=== PATIENT | male | born 1965 | race Caucasian/White ===

== ENCOUNTER 2017-03-16 14:38 | Observation (INO) ==
--- NOTE | 2017-03-16 14:50 | Emergency Department Note ---
Disposition Clinical Impression: Hyponatremia, Pancreatic mass Deep vein thrombosis of lower extremity Qualifiers: Affected thrombotic vein of extremity: popliteal Chronicity: acute Laterality: left Qualified Code(s): I82.432 - Acute embolism and thrombosis of left popliteal vein Disposition: Admitted As Inpatient Condition: Serious Time of Disposition: 18:20 Extremity Problem HPI - General Chief complaint: ED Extremity Problem,Nontraumatic Stated complaint: DVT Time Seen by Provider: 03/16/17 14:45 Source: patient Mode of arrival: ambulatory Limitations: no limitations Nursing Notes Reviewed: Yes Vital Signs Reviewed: Yes - History of Present Illness HPI Narrative: 51-year-old male history of pancreatic mass diagnosed 2 weeks ago with no subsequent follow-up presents with left lower extremity swelling, patient also has a history of DVTs his previously anticoagulated on Coumadin but has been discontinued and only takes aspirin at this time. Patient states that 2 or 3 days ago his left lower extremity started to swell on him. He reports 8 out of 10 pain in his left leg, describes this as pain from his lower calf up to his thigh. States that he has worse swelling and difficulty walking. Patient endorses 10 pounds or so of weight loss the last few months. Is also had anorexia and decreased ability to tolerate solids secondary to what he describes as an anaphylactic reaction to contrast dye when he had his CT imaging a few weeks ago. Pt Subjective Complaint: extremity swelling Onset (ago): day(s) (3) Injury Location: left Pain Scale: 8 Quality: aching Radiation: proximal, distal Improves with: immobilization Worsens with: range of motion, weight bearing Associated symptoms: Reports: denies other symptoms, shortness of breath, abdominal pain. Denies: chest pain, back pain, bowel/bladder symptoms Context: history of DVT - Related Data Home Medications Medication Instructions Recorded Confirmed Aspirin Enteric Coated [Aspirin EC] 81 mg PO DAILY 03/16/17 03/16/17 Lansoprazole [Prevacid] 30 mg PO DAILY 03/16/17 03/16/17 Ranitidine HCl [Heartburn Relief] 150 mg PO HS 03/16/17 03/16/17 Allergies Allergy/AdvReac Type Severity Reaction Status Date / Time Iodinated Contrast- Oral and Allergy Swelling Verified 03/16/17 14:42 IV Dye of Lip/Tongue/Throat morphine Allergy Nausea Verified 03/16/17 14:42 All systems ED: reviewed and negative except as stated. Review of Systems: As Per HPI Constitutional: Reports: as per HPI, weakness, weight change. Denies: fever, chills Eyes: Denies: eye pain ENT ED: Denies: ear pain Cardiovascular: Reports: as per HPI, dyspnea on exertion, edema (left leg). Denies: chest pain, palpitations Respiratory: Denies: cough, dyspnea Gastrointestinal: Reports: as per HPI, abdominal pain, nausea Genitourinary: Denies: urgency, dysuria Musculoskeletal: Reports: joint swelling. Denies: back pain Integumentary: Denies: rash Neurological: Reports: weakness. Denies: headache Psychiatric: Denies: anxiety Endocrine: Denies: fatigue Past Medical History - Past Medical History Attestation: Yes The following information was validated with the patient. Source: patient Physical Exam Constitutional: NAD, cachectic male appears older than stated age vital signs within normal limits Eyes: PERRLA, sclera anicteric ENT & Mouth: MM try Neck: normal inspection, neck is supple Resp: CTA bilaterally, no resp distress CV: RRR, no m/g/r +3 pitting edema left lower extremity ankle posterior calf or thigh GI: normal inspection, soft, no palpable mass, midline incision, mild tenderness no rebound or guarding Neuro: A&O3, CNII-XII grossly intact, PETTY Skin: on limited exam, skin intact with no rashes or lesions, left lower extremity is edematous and mildly erythematous from the ankle and proximately through the thigh poor skin turgor Course Course Narrative: 51-year-old male with concern for pancreatic mass recently diagnosed and history of DVTs has a new left lower extremity swelling plan for bedside ultrasound followed by formal ultrasound basic lab works for CBC BMP patient has some shortness of breath weakness and abdominal pain. As he clinically appears to have a DVT plan will be to get the ventilation perfusion imaging, as he has an iodine contrast dye allergy - Reevaluation(s) Reevaluation #1: Patient does not technically meet SIRS criteria but his heart rate is close at 98, his white count is 14, this may be related to the DVT bedside ultrasound shows a noncompressible veins diffusely in his deep system on the left leg performed by Dr. Ange Garner supervising, given his clinical exam and bedside findings, decision was made for heparinization, this is ordered in addition to lactate and blood cultures developed given white count plan will be for admission and medical management of his multiple comorbidities also on his electrolytes he is hyponatremic given a liter fluid Time: 16:25 Reevaluation #2: Ultrasound confirms DVT positive, patient with hyponatremia left lower summary DVT and pancreatic mass admitted to the hospitalist Christ ORTEGA accepting Time: 18:22 Vital Signs Temperature 98.4 F 03/16/17 14:44 Pulse Rate 92 03/16/17 14:44 Respiratory Rate 16 03/16/17 14:44 Blood Pressure 122/74 03/16/17 14:44 O2 Sat by Pulse Oximetry 99 03/16/17 14:44 Temperature 98.4 F 03/16/17 14:44 Pulse Rate 102 03/16/17 18:12 Respiratory Rate 16 03/16/17 18:12 Blood Pressure 112/79 03/16/17 18:12 O2 Sat by Pulse Oximetry 100 03/16/17 18:12 Oxygen Delivery Oxygen Delivery Room Air Extremity Problem, Nontraumati - Differential Diagnosis Likely: deep venous thrombosis - Medical Records Medical records reviewed: Yes I reviewed the patient's medical records. - Lab Data Lab results reviewed: Yes I reviewed the patient's lab results. Result diagrams: 03/16/17 14:54 03/16/17 14:54 Lab Results 03/16/17 03/16/17 03/16/17 Range/Units 14:54 14:54 14:54 WBC 14.4 H (4.3-11.1) K/mcL RBC 3.80 L (4.19-5.50) M/mcL Hgb 12.8 L (12.9-16.9) g/dL Hct 36.7 L (37.5-50.1) % MCV 96.6 (83.0-100.0) fL MCH 33.7 H (28.0-33.3) pg MCHC 34.9 (31.6-35.5) g/dL RDW 13.1 (11.5-14.5) % Plt Count 132 L (140-400) K/mcL MPV 10.1 (9.4-12.4) fL Immature Gran % 0.7 (0-4) % Seg Neutrophils % 73.6 % Lymphocytes % 11.9 % Monocytes % 12.9 % Eosinophils % 0.6 % Basophils % 0.3 % Neutrophils # 10.6 H (1.6-8.9) K/mcL Lymphocytes # 1.7 (0.6-4.6) K/mcL Monocytes # 1.9 H (0.0-1.3) K/mcL Eosinophils # 0.1 (0.0-0.6) K/mcL Basophils # 0.1 (0.0-0.2) K/mcL PT (9.4-12.1) Seconds INR APTT (26.0-36.0) Seconds Sodium 126 L (136-145) mEq/L Potassium 4.2 (3.5-4.5) mEq/L Chloride 91 L (98-109) mEq/L Carbon Dioxide 26 (19-29) mEq/L BUN 4 L (8-26) mg/dL Creatinine 0.57 L (0.72-1.25) mg/dL Est GFR ( Amer) > 60 (> 60) Est GFR (Non-Af Amer) > 60 (> 60) BUN/Creatinine Ratio 7 (6-26) Glucose 101 H (70-99) mg/dL Calculated Osmolality 259 L (280-300) Lactic Acid (0.5-2.2) mmol/L Calcium 9.4 (8.6-10.8) mg/dL Total Bilirubin 1.4 H (0.2-1.2) mg/dL AST 98 H (5-34) Units/L ALT 36 (0-55) Units/L Alkaline Phosphatase 782 H (38-126) Units/L Troponin I 0.02 (0-0.03) ng/mL Serum Total Protein 6.5 (6.0-8.3) g/dL Albumin 2.8 L (3.5-5.0) g/dL Globulin 3.7 H (2.4-3.5) g/dL Albumin/Globulin Ratio 0.8 L (1.1-2.2) Lipase 43 (8-78) Units/L Urine Color (Yellow) Urine Clarity (Clear) Urine pH (5.0-8.0) pH Units Ur Specific [place] (1.010-1.025) Urine Protein (Neg-Trace) mg/dL Urine Glucose (UA) (Normal) mg/dL Urine Ketones (Negative) mg/dL Urine Blood (Negative) Urine Nitrite (Negative) Urine Bilirubin (Negative) Urine Urobilinogen (Normal) mg/dL Ur Leukocyte Esterase (Negative) Urine Microscopic RBC (0-3) per hpf Urine Microscopic WBC (0-3) per hpf Ur Squamous Epith Cells (None-Few) per lpf Urine Bacteria (None-Few) per hpf Hyaline Casts (None-Few) per lpf Ur Culture Indicated? (NO) 03/16/17 03/16/17 03/16/17 Range/Units 14:54 16:05 17:20 WBC (4.3-11.1) K/mcL RBC (4.19-5.50) M/mcL Hgb (12.9-16.9) g/dL Hct (37.5-50.1) % MCV (83.0-100.0) fL MCH (28.0-33.3) pg MCHC (31.6-35.5) g/dL RDW (11.5-14.5) % Plt Count (140-400) K/mcL MPV (9.4-12.4) fL Immature Gran % (0-4) % Seg Neutrophils % % Lymphocytes % % Monocytes % % Eosinophils % % Basophils % % Neutrophils # (1.6-8.9) K/mcL Lymphocytes # (0.6-4.6) K/mcL Monocytes # (0.0-1.3) K/mcL Eosinophils # (0.0-0.6) K/mcL Basophils # (0.0-0.2) K/mcL PT 11.6 (9.4-12.1) Seconds INR 1.1 APTT 25.9 L (26.0-36.0) Seconds Sodium (136-145) mEq/L Potassium (3.5-4.5) mEq/L Chloride (98-109) mEq/L Carbon Dioxide (19-29) mEq/L BUN (8-26) mg/dL Creatinine (0.72-1.25) mg/dL Est GFR ( Amer) (> 60) Est GFR (Non-Af Amer) (> 60) BUN/Creatinine Ratio (6-26) Glucose (70-99) mg/dL Calculated Osmolality (280-300) Lactic Acid 1.0 (0.5-2.2) mmol/L Calcium (8.6-10.8) mg/dL Total Bilirubin (0.2-1.2) mg/dL AST (5-34) Units/L ALT (0-55) Units/L Alkaline Phosphatase (38-126) Units/L Troponin I (0-0.03) ng/mL Serum Total Protein (6.0-8.3) g/dL Albumin (3.5-5.0) g/dL Globulin (2.4-3.5) g/dL Albumin/Globulin Ratio (1.1-2.2) Lipase (8-78) Units/L Urine Color Dark Yellow (Yellow) Urine Clarity Cloudy A (Clear) Urine pH 6.0 (5.0-8.0) pH Units Ur Specific Radisson 1.020 (1.010-1.025) Urine Protein Negative (Neg-Trace) mg/dL Urine Glucose (UA) Normal (Normal) mg/dL Urine Ketones Trace H (Negative) mg/dL Urine Blood Negative (Negative) Urine Nitrite Negative (Negative) Urine Bilirubin Small H (Negative) Urine Urobilinogen Normal (Normal) mg/dL Ur Leukocyte Esterase Small H (Negative) Urine Microscopic RBC 0-3 (0-3) per hpf Urine Microscopic WBC 5-15 H (0-3) per hpf Ur Squamous Epith Cells Many H (None-Few) per lpf Urine Bacteria None Seen (None-Few) per hpf Hyaline Casts None Seen (None-Few) per lpf Ur Culture Indicated? YES A (NO) - Radiology Data Radiology results reviewed: Yes I reviewed the patient's radiology results. Pulmonary Perfusion Imaging 03/16/17 15:24 IMPRESSION: Low probability for pulmonary embolus. COPD. D/ / Waldemar Castillo MD / Waldemar Castillo MD Interpreting Provider: Waldemar Castillo MD Chest X-Ray 03/16/17 15:35 IMPRESSION: Stable chest, demonstrating emphysema and pleuroparenchymal scarring at the right base. No superimposed acute process identified. D/ / 03/16/2017 16:04:15 Nicanor Hernandez MD / geovani Interpreting Provider: Nicanor Hernandez MD - EKG Data EKG attestation: Yes I reviewed and interpreted this EKG. EKG shows normal: sinus rhythm Rate: normal (90 bpm [place] 119 QRS at [address] segment elevations or depressions, sinus arrhythmia)
[2017-03-16 15:09] LABS: Basophils # 0.1 K/mcL (0.0-0.2); Basophils % 0.3 %; Eosinophils # 0.1 K/mcL (0.0-0.6); Eosinophils % 0.6 %; Hematocrit 36.7 % (37.5-50.1); Hemoglobin 12.8 g/dL (12.9-16.9); Immature Granulocytes % 0.7 % (0-4); Lymphocytes # 1.7 K/mcL (0.6-4.6); Lymphocytes % 11.9 %; Mean Corpuscular HGB Conc 34.9 g/dL (31.6-35.5); Mean Corpuscular Hemoglobin 33.7 pg (28.0-33.3); Mean Corpuscular Volume 96.6 fL (83.0-100.0); Mean Platelet Volume 10.1 fL (9.4-12.4); Monocytes # 1.9 K/mcL (0.0-1.3); Monocytes % 12.9 %; Neutrophils # 10.6 K/mcL (1.6-8.9); Platelet Count 132 K/mcL (140-400); Red Cell Distribution Width 13.1 % (11.5-14.5); Segmented Neutrophils % 73.6 %
[2017-03-16] MEDS ORDERED: Ondansetron 4 MG/2 ML VIAL IVP ONE ×2 (15:15→18:22)
[2017-03-16] MEDS ORDERED: *HR* HYDROmorphone (PF) 1 MG/ML SYRINGE IVP ONE ×2 (15:15→17:40)
[2017-03-16] MEDS ORDERED: 0.9 % Sodium Chloride 1,000 ML IVC ONE ×2 (15:15→17:44)
[2017-03-16 15:22] LABS: Alanine Aminotransferase 36 Units/L (0-55); Albumin 2.8 g/dL (3.5-5.0); Albumin/Globulin Ratio 0.8 (1.1-2.2); Alkaline Phosphatase 782 Units/L (38-126); Aspartate Amino Transferase 98 Units/L (5-34); BUN/Creatinine Ratio 7 (6-26); Bilirubin,Total 1.4 mg/dL (0.2-1.2); Calcium 9.4 mg/dL (8.6-10.8); Carbon Dioxide 26 mEq/L (19-29); Chloride 91 mEq/L (98-109); Globulin 3.7 g/dL (2.4-3.5); Glucose 101 mg/dL (70-99); Lipase 43 Units/L (8-78); Osmolality,Calculated 259 (280-300); Potassium 4.2 mEq/L (3.5-4.5); Sodium 126 mEq/L (136-145); Total Protein 6.5 g/dL (6.0-8.3); eGFR For African Americans > 60 (> 60); eGFR For Non-African Americans > 60 (> 60)
[2017-03-16 15:23] LABS: Blood Urea Nitrogen 4 mg/dL (8-26)
[2017-03-16] MEDS ORDERED: *HR* Heparin 5,000 UNIT/ML VIAL IVP ONE (16:01)
[2017-03-16] MEDS ORDERED: *HR* Heparin 5,000 UNIT/ML VIAL IVP PRN ×2 (16:01)
--- NOTE | 2017-03-16 16:09 | Emergency Department Note ---
START Narrative - START START: I examined this patient and my medical decision-making was reviewed with the Resident Physician. I agree with the documented findings, disposition and treatment plan as described except to the extent set forth below. 51 year old male with pancreatic mass and likely cancer who presents to the ED with compalints of LLE swelling that started abotu one week ago and is also experineincg shortness of breath. Likely a DVT, will rule out PE, bedisde US by izzy confirms DVT in LLE. We will start heparin therapy now waitiing for fomrla ultrasound reports and aDMIT ot quentin
[2017-03-16] MEDS ORDERED: Heparin 25,000 UNIT/500 ML D5W 25,000 UNIT/500 ML MLS IVC SCH (16:15)
[2017-03-16 16:22] LABS: INR 1.1; Prothrombin Time 11.6 Seconds (9.4-12.1)
[2017-03-16 16:24] LABS: Activated Partial Thrombo Time 25.9 Seconds (26.0-36.0)
[2017-03-16 17:33] LABS: Bilirubin,Urine Small (Negative); Blood,Urine Negative (Negative); Clarity,Urine Cloudy (Clear); Color,Urine Dark Yellow (Yellow); Glucose,Urine (UA) Normal (Normal); Ketones,Urine Trace mg/dL (Negative); Leukocyte Esterase,Urine Small (Negative); Nitrite,Urine Negative (Negative); Protein,Urine Negative (Neg-Trace); Urobilinogen,Urine Normal (Normal)
[2017-03-16 17:37] LABS: Bacteria,Urine None Seen per hpf (None-Few); Hyaline Casts,Urine None Seen per lpf (None-Few); RBC,Urine 0-3 per hpf (0-3); Squamous Epithelial Cell,Urine Many per lpf (None-Few)
[2017-03-16] MEDS ORDERED: Ondansetron 4 MG/2 ML VIAL ONE (18:25)
[2017-03-16] MEDS ORDERED: 0.9 % Sodium Chloride 1,000 ML ONE (20:07)
[2017-03-16] MEDS ORDERED: 0.9 % Sodium Chloride 1,000 ML IVC SCH (20:15)
[2017-03-16] MEDS ORDERED: Naloxone 0.4 MG/ML INJ IVP PRN (20:17)
[2017-03-16] MEDS ORDERED: Acetaminophen 325 MG TABLET PO PRN (20:17)
--- NOTE | 2017-03-16 20:24 | Internal Med History&Physical ---
Date of Encounter: 03/16/17 Time of Encounter: 20:21 Assessment and Plan (1) Deep vein thrombosis of lower extremity Current visit: Yes Status: Acute start lovenox 1mg/kg BID tonight. To have case management check insurance/cost. provoked by [facility] Qualifiers: Affected thrombotic vein of extremity: popliteal Chronicity: acute Laterality: left Qualified Code(s): I82.432 - Acute embolism and thrombosis of left popliteal vein (2) Pancreatic adenocarcinoma Current visit: Yes Status: Acute consult onc (3) Hyponatremia Current visit: Yes Status: Acute IVF. Trend for now. (4) Tobacco abuse Current visit: Yes Status: Acute nicotine patch Internal Medicine - H&P: HPI Chief complaint: LLE swelling History of present illness: Mr. Cohen is a 51 year old male with a PMH of DVT in either legs x 2 (last was 7 years ago) and had been on coumadin for approx 6 months at that time, now off who presents with 1 week hx of worsening LLE swelling. Found to have acute LLE DVT in the ED Reported 1 week hx of worsening LLE swelling associated with throbbing 6/10, radiating all over his LLE. He denies any provoked factors such as immobilization/hospitalization/air or car travel. However, on review of patient chart and past imaging, he apparently has pancreatitic cancer which easily explains cause of DVT He smokes 2 PPD EKG reviewed by self with rate 90, NSR Past Med Surg Social Fam HX - Past Medical History Medical history: cancer, COPD, DVT Psychiatric history: anxiety, depression - Social History Smoking Status: Current every day smoker Packs per day: 2 Smokeless Tobacco Status: No Alcohol use: occasionally Drug use: none - Family History Father Living Status: Hx Family Cancer: Yes (skin) Mother Living Status: Hx Family Cancer: Yes (colon) Internal Medicine - H&P: Meds Aspirin Enteric Coated [Aspirin EC] 81 mg PO DAILY 03/16/17 [History] Lansoprazole [Prevacid] 30 mg PO DAILY 03/16/17 [History] Ranitidine HCl [Heartburn Relief] 150 mg PO HS 03/16/17 [History] 3 Allergy/AdvReac Type Severity Reaction Status Date / Time Iodinated Contrast- Oral and Allergy Swelling Verified 03/16/17 14:42 IV Dye of Lip/Tongue/Throat morphine Allergy Nausea Verified 03/16/17 14:42 All Systems PM: A 10-system review of systems was performed and is negative for pertinent findings except as documented above in the HPI. Review of systems: ROS 14 point review of systems reviewed as best as possible given presentation. Pertinent positive or negative as per HPI or otherwise reviewed as negative - Constitutional Vitals: Temp Pulse Resp BP Pulse Ox 97.4 F L 93 17 127/81 92 03/16/17 19:13 03/16/17 19:13 03/16/17 19:13 03/16/17 19:13 03/16/17 20:02 Exam: General - AAO x 3 Psych - Appropriate affect/speech. No agitation Eyes - RAGHAV. Eye lids intact. No scleral icterus Heart - Sinus. RRR. S1 and S2 present. No added HS/murmurs appreciated. No elevated JVD appreciated. Lung - Adequate air entry b/l, No crackles/wheezes appreciated GI - Soft, non-tender. No hepatosplenomegaly/ascites. BS+ - No CVA/suprapubic tenderness or palpable bladder distension Extremities - LLE swelling MSK - Joints with normal ROM. No joint swellings Internal Med - H&P Results - Labs CBC & Chem 7: 03/16/17 14:54 03/16/17 14:54
--- NOTE | 2017-03-16 20:32 | Electrocardiograph Report ---
[place] [id number] Test Date: 2017-03-16 Pat Name: [place] Cohen Department: 103 Room: 3B Gender: M [employer]: AM : 1965 Requested By: Gomez Osullivan Order Number: [id number] Reading MD: Melissa Valdez Measurements Intervals [place] Rate: 90 P: 77 OR: 119 QRS: 39 QRSD: 81 T: 58 QT: 360 QTc: 408 Interpretive Statements SINUS RHYTHM WITH SINUS ARRHYTHMIA WITH SHORT OR INTERVAL POSSIBLE RIGHT VENTRICULAR CONDUCTION DELAY [RSR (QR) IN V1/V2] Electronically Signed On 03-16-2017 20:30:08 EDT by Melissa Valdez
[2017-03-16] MEDS ORDERED: Famotidine 20 MG TABLET PO SCH (21:00)
[2017-03-16] MEDS ORDERED: *HR* Rivaroxaban 15 MG TABLET PO SCH (21:00)
[2017-03-16] MEDS: Nicotine 21 MG PATCH.TD24 TD SCH (21:15)
[2017-03-16] MEDS: *HR* Enoxaparin 60 MG/0.6 ML SYRINGE SQ SCH (21:15)
[2017-03-16] MEDS: 0.9 % Sodium Chloride 1,000 ML IVC SCH (21:51)
[2017-03-17 05:23] LABS: INR 1.1; Prothrombin Time 11.7 Seconds (9.4-12.1)
[2017-03-17 05:26] LABS: Activated Partial Thrombo Time 33.4 Seconds (26.0-36.0)
[2017-03-17] MEDS ORDERED: *HR* HYDROmorphone (PF) 1 MG/ML SYRINGE IVP ONE (05:28)
[2017-03-17 05:35] LABS: BUN/Creatinine Ratio 7 (6-26); Calcium 8.4 mg/dL (8.6-10.8); Carbon Dioxide 26 mEq/L (19-29); Chloride 101 mEq/L (98-109); Glucose 75 mg/dL (70-99); Osmolality,Calculated 276 (280-300); Potassium 4.1 mEq/L (3.5-4.5); eGFR For African Americans > 60 (> 60); eGFR For Non-African Americans > 60 (> 60)
[2017-03-17 05:38] LABS: Blood Urea Nitrogen 4 mg/dL (8-26); Sodium 135 mEq/L (136-145)
[2017-03-17] MEDS: *HR* Enoxaparin 60 MG/0.6 ML SYRINGE SQ SCH ×2 (05:59→17:18)
[2017-03-17] MEDS ORDERED: *HR* OxyCODONE Immed Rel 5 MG TABLET PO ONE (09:05)
[2017-03-17] MEDS: Aspirin Enteric Coated 81 MG Tablet PO SCH (09:45)
[2017-03-17] MEDS: Nicotine 21 MG PATCH.TD24 TD SCH (09:50)
[2017-03-17] MEDS ORDERED: *HR* OxyCODONE Immed Rel 5 MG TABLET PO PRN (17:11)
[2017-03-17] MEDS: 0.9 % Sodium Chloride 1,000 ML IVC SCH (17:18)
--- NOTE | 2017-03-17 17:25 | Internal Med Progress Note ---
Date of Encounter: 03/17/17 Time of Encounter: 17:48 - Assessment and plan (1) Deep vein thrombosis of lower extremity Current Visit: Yes Status: Acute Assessment and plan: hx DVT in the past. Presented with Left lower extremity edema for one week prior to admission. Bilateral lower extremity dopplers with extensive left leg DVT. Cont Lovenox Qualifiers: Affected thrombotic vein of extremity: popliteal Chronicity: acute Laterality: left Qualified Code(s): I82.432 - Acute embolism and thrombosis of left popliteal vein (2) Pancreatic adenocarcinoma Current Visit: Yes Status: Acute Assessment and plan: outpatient ABD CT with primary pancreatic malignancy with metastatic disease to the liver and upper abdominal lymphadenopathy. Has not been evaluated by Oncology. He would likle to follow at [place]. Oncology and GI consulted. Discussed with Oncology and will likely need liver bx. (3) Left kidney mass Current Visit: Yes Status: Acute Assessment and plan: 02/25/[address] with hypodenisty to left kidney concerning for infarct or infection. Already on therapeutic Lovenox for DVT. Admission UA grossly contaminated. WBC 14K. Repeat UA (4) Compression fracture Current Visit: Yes Status: Acute Assessment and plan: 02/25/[address] with multiple compression fractures, unchanged from previous imaging. PRN OxyIR (5) Hyponatremia Current Visit: Yes Status: Acute Assessment and plan: Na 126 on arrival. Normalized with IV fluids. Intermittently monitor CMP (6) Tobacco abuse Current Visit: Yes Status: Acute Assessment and plan: Current smoker; cessation advised. - Subjective Interval history: Seen and examined at bedside; he complains of back pain which he tinks is due to compression fx. Says swelling in left leg is about the same. No CP or SOB - Constitutional Vitals: Temp Pulse Resp BP Pulse Ox 98.1 F 93 15 115/77 95 03/17/17 15:30 03/17/17 15:30 03/17/17 15:30 03/17/17 15:30 03/17/17 15:30 General appearance: Present: cachectic - Head Head exam: Present: atraumatic, normocephalic - Eye Eye exam: Present: PERRL, conjuntiva pink, sclera anicteric Pupils: Present: PERRL - Neck Neck exam general surgery: Present: supple, trachea midline. Absent: lymphadenopathy - Respiratory Respiratory exam: Present: CTAB. Absent: accessory muscle use, rales, rhonchi, wheezes - Cardiovascular Cardiovascular exam: Present: RRR, +S1, +S2. Absent: diastolic murmur, gallop, rubs, systolic murmur - GI/Abdominal GI/Abdominal exam: Present: normal bowel sounds, soft, no peritoneal signs. Absent: distended, tenderness - Extremities Exam Extremities exam: Present: warm, radial pulses palpable and symmetrical. Absent : calf tenderness, cyanotic, pedal edema - Neurological Exam Neurological exam: Present: CN II-XII intact, oriented X3, no focal deficits. Absent: pronater drift, facial droop, speech deficit - Skin Skin exam: Present: dry, intact Internal Medicine: Result - Labs CBC & Chem 7: 03/16/17 14:54 03/17/17 04:37 Labs: BMP 03/17/17 04:37 Sodium 135 L D Potassium 4.1 Chloride 101 Carbon Dioxide 26 BUN 4 L Creatinine 0.55 L Glucose 75 Calcium 8.4 L - ABG Interpretation ABG results: PT/INR, D-dimer PT 11.7 Seconds (9.4-12.1) 03/17/17 04:37 Consult Discharge Plan - Plan Referrals: Neeraj Bueno DO [Resident] -
--- NOTE | 2017-03-17 17:44 | Venous Imaging Report ---
LE Venous Duplex Patient Name:[place] Cohen Order Number:[id number] Procedure Date:03/16/2017 Date:1965Age:51 yrs Gender:Male Location:[facility] ED Room #: ER02 Ore Feeder:Georgie Deng RDCS, RVT Referring MD:Gomez Osullivan DO Reading MD:Remi Barba MD , FACS Primary Indications:Swelling of limb Secondary Indications: Risk Factors Yes/No Hx of DVT Yes Impressions: Lower extremity abnormal deep exam: left iliac through tibial vein demonstrates acute thrombosis. Lower extremity abnormal superficial exam: left great saphenous vein and lesser saphenous vein demonstrate acute thrombosis. Right lower extremity: normal contralateral exam. Recommendations: Test completed on 03/16/2017 at 4:30:00 pm. Critical findings reported to Rambo Osullivan in person at 4:34:00 pm on 03/16/2017 by Georgie Deng RDCS, RVT. Findings Venous Duplex Results: Right: Venous imaging of the lower extremity reveals full patency and normal vessel compressibility of the right common femoral. Doppler signals in the evaluated veins were normal. Left: Venous imaging of the lower extremity reveals full patency and normal vessel compressibility of the left peroneal and left posterior tibial. Doppler signals in the evaluated veins were normal. The left distal iliac demonstrates an incompressible vein. Flow was continuous and it did not augment. The left common femoral demonstrates an incompressible vein. Flow was absent and it did not augment. The left superficial femoral demonstrates an incompressible vein. Flow was continuous and it did not augment. The left popliteal demonstrates an incompressible vein. Flow was absent and it did not augment. The left gastrocnemius demonstrates an incompressible vein. Flow was absent and it did not augment. The left great saphenous demonstrates an incompressible vein. Flow was continuous and it did not augment. The left lesser saphenous demonstrates an incompressible vein. Flow was absent and it did not augment. Prior Study: No prior study available for comparison. Lower Extremity Venous Duplex Side Vein Compress Spontaneous Flow Augment Diameter (cm) Depth (cm) Left Distal Iliac None no Continuous no Left Common Femoral None no Absent no Left Superficial Femoral None no Continuous no Left Popliteal None no Absent no Left Peroneal Normal Yes Phasic Yes Left Gastrocnemius None no Absent no Left Posterior Tibial Normal Yes Phasic Yes Left Great Saphenous None no Continuous no Left Lesser Saphenous None no Absent no Right Common Femoral Normal Yes Phasic Yes Updated by Remi Barba MD, FACS on 03/17/2017 5:38:57 PM Remi Barba MD electronically signed on 03/17/2017 5:39:34 PM with status of Final
[2017-03-17 18:34] LABS: Bilirubin,Urine Small (Negative); Blood,Urine Negative (Negative); Clarity,Urine Cloudy (Clear); Color,Urine Dark Yellow (Yellow); Glucose,Urine (UA) Normal (Normal); Ketones,Urine Negative (Negative); Leukocyte Esterase,Urine Negative (Negative); Nitrite,Urine Negative (Negative); Protein,Urine Negative (Neg-Trace); Specific Gravity,Urine 1.017 (1.010-1.025); Urobilinogen,Urine Normal (Normal)
[2017-03-17 18:36] LABS: Hyaline Casts,Urine None Seen per lpf (None-Few); RBC,Urine 0-3 per hpf (0-3); Squamous Epithelial Cell,Urine Many per lpf (None-Few); WBC,Urine 0-3 per hpf (0-3)
[2017-03-17 18:47] LABS: Bacteria,Urine Few per hpf (None-Few)
--- NOTE | 2017-03-17 20:19 | Oncology Inp Consult Note ---
Date of Encounter: 03/17/17 Time of Encounter: 20:08 Assessment and Plan (1) Pancreatic mass Status: Acute Assessment and plan: I personally reviewed Mr. Cohen CT scan findings ( both CT chest and abdomen from december 18 and march 10, 2017 and inform him that the findings are highly suggestive of pancreatic cancer. I informed him that there is a lesion in the liver that in view of the interval growth is concerning for a liver metastasis. I explained him that a liver biopsy would be needed in order to obtain a final diagnosis along with pathologic staging. he expressed agreement with the above recommendations. I explained him that if the liver biopsy confirms the diagnosis of pancreatic cancer, it would be stage IV. Upon his request I discuss prognostic information in averages/medias with him. I explained him that the media survival for stage IV in patients receiving chemotherapy varies depending of performance status, co morobidities, response to chemo, but the values media is probably 12-14 months. He expressed understanding and was calmed during the discussion and expressed his interest to pursue therapy. Recommendations: - Please request an IR consult to consider CT guided liver biopsy. (2) Deep vein thrombosis of lower extremity Status: Acute Assessment and plan: - Tolerating full anticoagulation with lovenox well. no bleeding complications. Qualifiers: Affected thrombotic vein of extremity: popliteal Chronicity: acute Laterality: left Qualified Code(s): I82.432 - Acute embolism and thrombosis of left popliteal vein (3) Hyperbilirubinemia Status: Acute Assessment and plan: - Concerning for obstructive cholestasis in the presence of suspected pancreatic cancer. - Please check total and direct bili in AM - Please request GI consult (4) Compression fracture Status: Acute Assessment and plan: - Unchanged when compared with prior imaging. Apparently post traumatic in view of his chronic unchanged back pain and history of multiple traumas since 2017. If worsening pain consider lumbar/thoracic MRI. - Data of Consult Requesting Physician: Rivka Meyer CNP Primary Care Provider: PCP NONE - Consult Narrative Reason for consult: pancreatic mass, suspicious for pancreatic ca History of present illness: Mr. Cohen is a 51 year old male with history of recently found pancreatic mass , and history of DVT who presented to the ED due to worsening left ;eg pain and swelling. Recently he was found incidentally to have a pancreatic mass after undergoing work up ( CT chest) for a history of pulmonary nodes. He underwent a CT chest on 12/18/16 that as described above revealed the incidental finding of pancreatic mass. Subsequently on february 25, he underwent a CT abdomen that revealed a pancreatic mass highly suggestive of pancreatic cancer, associated with upper abodminal lymphadenopathy, and 2.7 cm liver lesion adjacent to the gallbladder increased in size compared with prior imaging. His thoracic findings were thought to probably represent inflammatory in etiology. He reports being schedule to see an oncologist at [facility] in March. He was aware of the pancreatic mass prior to the visit. He reports epigastric pain, like pressure, with no radiation, rated as 4/10. Reports not association with meals. Reports approximately 20 pounds of weight loss, even with conserved appetite reports a history of multiple accidents and trauma to his back, first one in 1999, with subsequent chronic back pain, apparently related to old compression/ traumatic fractures. Reports a history of DVT approximately 7 years, for which he completed 6 months of coumadin, no recurrence until most recent event. Denies bleeding issues. Reports living in a trailer. His last April. Reports that he has a son and a step daughter, but does not feel so much support because his son has been in alf ( to be sentenced tomorrow) since Nov last year, and his daughter is autistic. Reports ongoing smoking, just prior to admission, approximately 2 PPD. Reports drinking alcohol occasionally. Reports a history of colon cancer in his mother. He reports being on disability due to his back pain. Denies nausea, constipation, diarrhea, headache. He lives indepently, drives and independent with ADLS. Past Med Surg Social Fam HX - Past Medical History Medical history: cancer, COPD, DVT Psychiatric history: anxiety, depression - Social History Smoking Status: Current every day smoker Packs per day: 2 Smokeless Tobacco Status: No Alcohol use: occasionally Drug use: none - Family History Father Living Status: Hx Family Cancer: Yes (skin) Mother Living Status: Hx Family Cancer: Yes (colon) Medications and Allergies Aspirin Enteric Coated [Aspirin EC] 81 mg PO DAILY 03/16/17 [History] Lansoprazole [Prevacid] 30 mg PO DAILY 03/16/17 [History] Ranitidine HCl [Heartburn Relief] 150 mg PO HS 03/16/17 [History] 3 Allergy/AdvReac Type Severity Reaction Status Date / Time Iodinated Contrast- Oral and Allergy Swelling Verified 03/16/17 14:42 IV Dye of Lip/Tongue/Throat morphine Allergy Nausea Verified 03/16/17 14:42 Constitutional: Present: fatigue, weight loss. Absent: anorexia, fever(s), headache(s) Eyes: Absent: blurry vision, diplopia Cardiovascular: Present: edema. Absent: chest pain, chest pain at rest Respiratory: Absent: cough, dyspnea Gastrointestinal: Present: abdominal pain. Absent: change in bowel habits, coffee ground emesis, dysphagia, hematemesis, hematochezia Musculoskeletal: Present: myalgias, radiating pain into limb Integumentary: Absent: photosensitivity, pruritus, rash Neurological: Absent: abnormal speech, behavioral changes, vertigo Psychiatric: Absent: auditory hallucinations, hallucinations, visual hallucinations Endocrine: Present: change in body appearance Hematologic/Lymphatic: Present: as per HPI Oncology - Exam - Constitutional Vitals: Temp Pulse Resp BP Pulse Ox 98.1 F 95 16 114/79 97 03/17/17 18:59 03/17/17 18:59 03/17/17 18:59 03/17/17 18:59 03/17/17 18:59 - Head Head exam: Present: normal inspection, normocephalic - Eye Eye exam: Present: EOMI, normal appearance, PERRL - ENT ENT exam: Present: normal exam, normal oropharynx - Neck Neck exam: Present: normal inspection. Absent: lymphadenopathy, tenderness - Respiratory Respiratory exam: Present: CTAB, prolonged expiratory phase. Absent: rales - Cardiovascular Cardiovascular exam: Present: RRR. Absent: diastolic murmur, gallop - GI/Abdominal GI/Abdominal exam: Present: normal bowel sounds, tenderness (epigastric tenderness with deep palpation. no rebound tenderness.). Absent: organomegaly, pulsatile mass - Extremities Exam Extremities exam: Present: normal capillary refill, pedal edema, tenderness - Back Exam Back exam: Present: vertebral tenderness (tenderness with palpation in the lumbar spine. no skin changes. ) - Neurological Exam Neurological exam: Present: alert, CN II-XII intact, oriented X3 - Psychiatric Psychiatric exam: Present: normal affect, normal mood - Skin Skin exam: Present: normal color. Absent: diaphoretic, pallor, petechiae Oncology - Results Labs: [facility] 03/17/17 04:37 Sodium 135 L D Potassium 4.1 Chloride 101 Carbon Dioxide 26 BUN 4 L Creatinine 0.55 L Glucose 75 Calcium 8.4 L Urine 03/17/17 Range/Units 18:23 Urine Color Dark Yellow (Yellow) Urine Clarity Cloudy A (Clear) Urine pH 6.0 (5.0-8.0) pH Units Ur Specific [place] 1.017 (1.010-1.025) Urine Protein Negative (Neg-Trace) mg/dL Urine Glucose (UA) Normal (Normal) mg/dL Consult Discharge Plan - Plan Referrals: Neeraj Buneo DO [Resident] -
[2017-03-17] MEDS: Famotidine 20 MG TABLET PO SCH (20:44)
[2017-03-18] MEDS ORDERED: *HR* OxyCODONE Immed Rel 5 MG TABLET PO ONE
[2017-03-18] MEDS: *HR* OxyCODONE Immed Rel 5 MG TABLET PO PRN ×5 (02:34→20:01)
[2017-03-18] MEDS: 0.9 % Sodium Chloride 1,000 ML IVC SCH ×2 (04:04→14:46)
[2017-03-18 04:59] LABS: Hematocrit 32.3 % (37.5-50.1); Mean Corpuscular HGB Conc 33.4 g/dL (31.6-35.5); Mean Corpuscular Hemoglobin 33.2 pg (28.0-33.3); Mean Corpuscular Volume 99.4 fL (83.0-100.0); Mean Platelet Volume 9.3 fL (9.4-12.4); Platelet Count 182 K/mcL (140-400); Red Blood Count 3.25 M/mcL (4.19-5.50); Red Cell Distribution Width 13.2 % (11.5-14.5)
[2017-03-18 05:03] LABS: Hemoglobin 10.8 g/dL (12.9-16.9)
[2017-03-18 05:15] LABS: Alanine Aminotransferase 30 Units/L (0-55); Albumin/Globulin Ratio 0.7 (1.1-2.2); Alkaline Phosphatase 611 Units/L (38-126); Aspartate Amino Transferase 82 Units/L (5-34); BUN/Creatinine Ratio 5 (6-26); Bilirubin,Total 0.9 mg/dL (0.2-1.2); Calcium 7.9 mg/dL (8.6-10.8); Carbon Dioxide 22 mEq/L (19-29); Chloride 100 mEq/L (98-109); Globulin 2.9 g/dL (2.4-3.5); Glucose 85 mg/dL (70-99); Osmolality,Calculated 270 (280-300); Potassium 3.5 mEq/L (3.5-4.5); Sodium 132 mEq/L (136-145); eGFR For African Americans > 60 (> 60); eGFR For Non-African Americans > 60 (> 60)
[2017-03-18 05:17] LABS: Albumin 2.1 g/dL (3.5-5.0); Blood Urea Nitrogen 3 mg/dL (8-26)
[2017-03-18] MEDS: Aspirin Enteric Coated 81 MG Tablet PO SCH (07:38)
[2017-03-18] MEDS: Nicotine 21 MG PATCH.TD24 TD SCH (07:38)
[2017-03-18] MEDS: *HR* Enoxaparin 60 MG/0.6 ML SYRINGE SQ SCH ×2 (07:39→17:33)
[2017-03-18] MEDS ORDERED: ALPRAZolam 0.5 MG TABLET PO ONE (11:10)
--- NOTE | 2017-03-18 11:18 | Oncology Inp Progress Note ---
Date of Encounter: 03/18/17 Time of Encounter: 11:17 (1) Pancreatic mass Current Visit: Yes Status: Acute Assessment and plan: -I explained to Mr. Cohen that in order to proceed with a liver biopsy, anticoagulation would have to be switched to heparin drip and hold off approximately 4 hours prior to the procedure ( or 12 hours prior if anticoagulated with lovenox), and then resume once IR considered it safe ( usually approximately 12 hours post procedure if not bleeding complications). I explained him that he would be exposed to a significant risk of developing a pulmonary embolia during the period of time he was off anticoagulation, in view of the recent onset of his DVT and the size ( involving distal iliac veins, common femoral veins). I explained him that in view of that, I would recommend to place an IVC filter prior to the procedure, in order to safely being able to temporally discontinue anticoagulation ( what could be helpful too if down the road he experiences severe chemo-associated thrombocytopenia that requires to hold off anticoagulation). After discussion, he expressed that at this time he would prefer to hold off on any biopsy procedure during the inpatient stay, expressing that he would consider the biopsy procedure once he has experienced improvement of his leg pain/DVT. He expressed his decision against having an IVC filter during the current hospital stay, that certainly would not be indicated if there is not need to hold off anticoagulation. He is aware that delaying the biopsy procedure, would delay to have a definitive diagnosis, what in turn would delay the time to start palliative chemotherapy. He expressed his interest to keep his appointment with Dr. Sequeira on March 22, 2017 to discuss options of treatment and the timing of biopsy procedure. Recommendations: - Please hold off on plans for inpatient IR guided liver biopsy - Continue lovenox 60 mg SQ BID - He is already scheduled to see Dr. Sequeira on March 22, 2017 to establish oncology care. (2) Deep vein thrombosis of lower extremity Current Visit: Yes Status: Acute Assessment and plan: - Tolerating full anticoagulation with lovenox. No bleeding complications. Qualifiers: Affected thrombotic vein of extremity: popliteal Chronicity: acute Laterality: left Qualified Code(s): I82.432 - Acute embolism and thrombosis of left popliteal vein (3) Compression fracture Current Visit: Yes Status: Acute Assessment and plan: - Persistent but unchanged chronic pain; Apparently post traumatic in view of his history of multiple traumas since 2017. If worsening pain consider lumbar/ thoracic MRI. Oncology: Subj Interval history: Complaint: leg pain. Mr. Cohen reports persistent leg pain, involving all his left lower extremity. Denies shortness of breath or chest pain. He reports persistent epigastric pain, described a pressure like pain, non radiated. Denies nausea, vomiting, diarrhea. He expressed that he would prefer to hold off on any biopsy procedure for now, but still wants to keep his appointment with medical oncology ( Dr. Sequeira) at [facility] on 03/22/17; he expect to be at home by then. - Constitutional Vitals: Vital Signs Temp Pulse Resp BP Pulse Ox 03/18/17 07:05 98.7 F 77 15 135/92 97 03/18/17 03:13 98.4 F 83 12 113/73 97 03/17/17 23:12 98.8 F 90 16 116/78 97 03/17/17 18:59 98.1 F 95 16 114/79 97 03/17/17 15:30 98.1 F 93 15 115/77 95 03/17/17 11:26 97.9 F 71 17 113/73 96 Intake and Output 03/17/17 03/18/17 03/18/17 23:59 07:59 15:59 Intake Total 1000 / 1000 Output Total 750 / 750 250 / 250 Balance -750 / -750 750 / 750 Intake: IV Fluids 1000 / 1000 0.9 % Sodium Chloride 1,000 ML 1000 / 1000 @ 100 mls/hr IVC .Q10H SADIQ Rx#: [id number] Output: Urine 750 / 750 250 / 250 Other: Weight 60.6 kg Patient Weight 03/18/17 23:59 Weight 60.6 kg - Head Head exam: Present: normal inspection - Respiratory Respiratory exam: Present: CTAB - GI/Abdominal GI/Abdominal exam: Present: normal bowel sounds, soft, tenderness (epigastric tenderness.) - Extremities Exam Extremities exam: Present: tenderness (left lower extremity edema/tenerness.) Oncology: Obj Data - Labs CBC & Chem 7: 03/18/17 04:46 03/18/17 04:46 Labs: Laboratory Results - last 24 hr 03/17/17 03/17/17 03/18/17 07:07 18:23 04:46 WBC 11.5 H RBC 3.25 L Hgb 10.8 L D Hct 32.3 L MCV 99.4 MCH 33.2 MCHC 33.4 RDW 13.2 Plt Count 182 MPV 9.3 L Sodium Potassium Chloride Carbon Dioxide BUN Creatinine Est GFR ( Amer) Est GFR (Non-Af Amer) BUN/Creatinine Ratio Glucose POC Glucose 84 Calculated Osmolality Calcium Total Bilirubin AST ALT Alkaline Phosphatase Serum Total Protein Albumin Globulin Albumin/Globulin Ratio Urine Color Dark Yellow Urine Clarity Cloudy A Urine pH 6.0 Ur Specific [place] 1.017 Urine Protein Negative Urine Glucose (UA) Normal Urine Ketones Negative Urine Blood Negative Urine Nitrite Negative Urine Bilirubin Small H Urine Urobilinogen Normal Ur Leukocyte Esterase Negative Urine Microscopic RBC 0-3 Urine Microscopic WBC 0-3 Ur Squamous Epith Cells Many H Urine Bacteria Few Hyaline Casts None Seen Ur Culture Indicated? NO 03/18/17 04:46 WBC RBC Hgb Hct MCV MCH MCHC RDW Plt Count MPV Sodium 132 L Potassium 3.5 Chloride 100 Carbon Dioxide 22 BUN 3 L Creatinine 0.56 L Est GFR ( Amer) > 60 Est GFR (Non-Af Amer) > 60 BUN/Creatinine Ratio 5 L Glucose 85 POC Glucose Calculated Osmolality 270 L Calcium 7.9 L Total Bilirubin 0.9 AST 82 H ALT 30 Alkaline Phosphatase 611 H Serum Total Protein 5.0 L D Albumin 2.1 L D Globulin 2.9 Albumin/Globulin Ratio 0.7 L Urine Color Urine Clarity Urine pH Ur Specific [place] Urine Protein Urine Glucose (UA) Urine Ketones Urine Blood Urine Nitrite Urine Bilirubin Urine Urobilinogen Ur Leukocyte Esterase Urine Microscopic RBC Urine Microscopic WBC Ur Squamous Epith Cells Urine Bacteria Hyaline Casts Ur Culture Indicated? - ABG Interpretation ABG results: PT/INR, D-dimer PT 11.7 Seconds (9.4-12.1) 03/17/17 04:37 Consult Discharge Plan - Plan Referrals: Neeraj Bueno DO [Resident] -
--- NOTE | 2017-03-18 15:57 | Gastroenterology Consult Note ---
<Breana Paiz - Last Filed: 03/18/17 21:52> Date of Encounter: 03/18/17 Time of Encounter: 18:00 - Time Spent With Patient Total time spent is greater than 50% in coordination of care (as documented) at patient's floor/unit and/or counseling patient: GI History of Present Illness - Data of Consult Requesting Physician: Rivka Meyer CNP - Consult Narrative History of present illness: Mr. Cohen is a 51 year old male - Constitutional Vitals: Temp Pulse Resp BP Pulse Ox 99.8 F H 96 17 121/87 95 03/18/17 18:39 03/18/17 18:39 03/18/17 18:39 03/18/17 18:39 03/18/17 18:39 Results - Labs CBC & Chem 7: 03/18/17 04:46 03/18/17 04:46 Labs: Last Result Calcium 7.9 mg/dL (8.6-10.8) L 03/18/17 04:46 Troponin I 0.02 ng/mL (0-0.03) 03/16/17 14:54 Entire Visit Hgb 10.8 g/dL (12.9-16.9) L D 03/18/17 04:46 Hct 32.3 % (37.5-50.1) L 03/18/17 04:46 PT 11.7 Seconds (9.4-12.1) 03/17/17 04:37 Total Bilirubin 0.9 mg/dL (0.2-1.2) 03/18/17 04:46 AST 82 Units/L (5-34) H 03/18/17 04:46 ALT 30 Units/L (0-55) 03/18/17 04:46 Lipase 43 Units/L (8-78) 03/16/17 14:54 - ABG ABG results: PT/INR, D-dimer PT 11.7 Seconds (9.4-12.1) 03/17/17 04:37 Consult Discharge Plan - Plan Referrals: Neeraj Bueno DO [Resident] - - Attending Attestation I examined this patient and my medical decision-making was reviewed with the Resident Physician. I agree with the documented findings, disposition and treatment plan as described except to the extent set forth below. Pt with Panc mass with liver mets. Also has LLE DVT. Pt want to have biopsy as out pt. Will kelsie next week for EUS with panc mass and liver biopsy. <Yessenia Ba - Last Filed: 03/19/17 08:17> Date of Encounter: 03/19/17 Time of Encounter: 14:00 - Assessment and plan (1) Pancreatic mass Current Visit: Yes Status: Acute Assessment and plan: Pt has pancreatic mass with possible liver metastasis. He needs biopsy for diagnosis. Will proceed with EUS with biopsy in the am. He may need IR consult if unable to reach endoscopically. Oncology has already been consulted. Will stop lovenox tonight. (2) Pancreatic mass Current Visit: Yes Status: Acute - Time Spent With Patient Total time spent is greater than 50% in coordination of care (as documented) at patient's floor/unit and/or counseling patient: GI History of Present Illness - Data of Consult Patient: new to practice Consult date: 03/18/17 Requesting Physician: Rivka Meyer CNP - Consult Narrative Reason for consult: pancreatic/liver masses History of present illness: Mr. Cohen is a 51 year old male who presented with lower extremity pain and edema he was found to have a DVT. He was started on lovenox on admission. He has a history of DVTs 8 years ago and was on on coumadin at that time but no recent anticoagulants except for low dose aspirin at home. CT of the abdomen showed a pancreatic mass with possible liver metastasis and gastric invasion. He denies any diarrhea, constipation, melena or hematochezia. He denies abdominal pain or fever. He has lost 10 pounds in the past 2 months. He has a history of GERd and is on zantac and prevacid at home. He denies any previous surgeries, or endoscopic procedures. Past Med Surg Social Fam HX - Past Medical History Medical history: cancer, COPD, DVT Psychiatric history: anxiety, depression - Social History Smoking Status: Current every day smoker Packs per day: 2 Smokeless Tobacco Status: No Alcohol use: occasionally Drug use: none - Family History Father Living Status: Hx Family Cancer: Yes (skin) Mother Living Status: Hx Family Cancer: Yes (colon) Review of Systems: GI: as per [facility]: denies fever, has some chills EYES: denies yellow discoloration ENT: denies pain with swallowing or difficulty swallowing CARDIO: denies chest pain, palpitations RESP: No Shortness of breath with exertion : denies change in color of urine NEURO: denies any weakness HEME: Denies any bruising MS: denies joint pain, joint swelling or back pain. DERM: denies rash or itching PSYCH: Denies history of anxiety or depression - Constitutional Vitals: Temp Pulse Resp BP Pulse Ox 98.2 F 91 16 117/78 97 03/18/17 15:11 03/18/17 15:11 03/18/17 15:11 03/18/17 15:11 03/18/17 15:11 Exam: CONSTITUTIONAL:~alert, no acute distress.~HEAD:~normocephalic.~EYES:~no jaundice.~NECK:~no obvious swelling.~HEART:~regular rate and rhythm, no murmurs. ~LUNGS:~bilateral good air entry, lungs clear.~ABDOMEN:~non distended, soft, tender below umbilicus no bruising noted, no masses pulpable, no organomegaly.~ RECTAL EXAM:~Deferred.~EXTREMITIES:~no clubbing, or cyanosis, 2+ LLE edema noted.~SKIN:~no stigmata of chronic liver disease.~NEUROLOGIC:~no obvious focal defect.~~~~ Results - Labs CBC & Chem 7: 03/19/17 04:45 03/19/17 04:45 Labs: Last Result Calcium 7.9 mg/dL (8.6-10.8) L 03/18/17 04:46 Troponin I 0.02 ng/mL (0-0.03) 03/16/17 14:54 Entire Visit Hgb 10.8 g/dL (12.9-16.9) L D 03/18/17 04:46 Hct 32.3 % (37.5-50.1) L 03/18/17 04:46 PT 11.7 Seconds (9.4-12.1) 03/17/17 04:37 Total Bilirubin 0.9 mg/dL (0.2-1.2) 03/18/17 04:46 AST 82 Units/L (5-34) H 03/18/17 04:46 ALT 30 Units/L (0-55) 03/18/17 04:46 Lipase 43 Units/L (8-78) 03/16/17 14:54 - ABG ABG results: PT/INR, D-dimer PT 11.7 Seconds (9.4-12.1) 03/17/17 04:37
--- NOTE | 2017-03-18 16:37 | Internal Med Progress Note ---
Date of Encounter: 03/18/17 Time of Encounter: 16:34 - Assessment and plan (1) Deep vein thrombosis of lower extremity Current Visit: Yes Status: Acute Assessment and plan: hx DVT in the past. Presented with Left lower extremity edema for one week prior to admission. Bilateral lower extremity dopplers with extensive left leg DVT. Cont Lovenox now and plan for Lovenox home injections at discharge. Qualifiers: Affected thrombotic vein of extremity: popliteal Chronicity: acute Laterality: left Qualified Code(s): I82.432 - Acute embolism and thrombosis of left popliteal vein (2) Pancreatic adenocarcinoma Current Visit: Yes Status: Acute Assessment and plan: outpatient ABD CT with primary pancreatic malignancy with metastatic disease to the liver and upper abdominal lymphadenopathy. Evaluated by Oncology who suspect pancreatic cancer with liver metastasis. Oncology noted if diagnosis of pancreatic cancer was confirmed it would likely be stage IV.; With medium survival 12-14 months. A liver biopsy was recommended however patient declining at this time. Patient would like to be discharged home with outpatient follow-up. GI consulted as well but patient not likely to pursue biopsy inpatient. Patient was very anxious, nervous and upset on 02/20 a exam. Received one-time dose Xanax with improvement. Consider Rx at discharge. Plan for follow-up with Dr. Sequeira on 03/22/17 (3) Left kidney mass Current Visit: Yes Status: Acute Assessment and plan: 02/25/[address] with hypodenisty to left kidney concerning for infarct or infection. Already on therapeutic Lovenox for DVT. Admission UA grossly contaminated. WBC 14K. Repeat UA unremarkable. (4) Compression fracture Current Visit: Yes Status: Acute Assessment and plan: 02/25/[address] with multiple compression fractures, unchanged from previous imaging. Not on pain medication at home. Pain improved with PRN OxyIR. Consider 1 week Rx at discharge. (5) Hyponatremia Current Visit: Yes Status: Acute Assessment and plan: Na 126 on arrival. Normalized with IV fluids. Intermittently monitor CMP (6) Tobacco abuse Current Visit: Yes Status: Acute Assessment and plan: Current smoker; cessation advised. - Subjective Interval history: Seen and examined at bedside; talked to patient at length regarding need for liver biopsy. Patient is adamant he does not want to do a liver biopsy in the hospital, he is not even sure if he wants to do it all. He is very tearful and upset, concerned about his dog who is at home and overall and shock with diagnosis.. Anxious and nervous. Requesting something for anxiety. No chest pain or shortness of breath. - Constitutional Vitals: Temp Pulse Resp BP Pulse Ox 98.2 F 91 16 117/78 97 03/18/17 15:11 03/18/17 15:11 03/18/17 15:11 03/18/17 15:11 03/18/17 15:11 General appearance: Present: cachectic - Head Head exam: Present: atraumatic, normocephalic - Eye Eye exam: Present: PERRL, conjuntiva pink, sclera anicteric Pupils: Present: PERRL - Neck Neck exam general surgery: Present: supple, trachea midline. Absent: lymphadenopathy - Respiratory Respiratory exam: Present: CTAB. Absent: accessory muscle use, rales, rhonchi, wheezes - Cardiovascular Cardiovascular exam: Present: RRR, +S1, +S2. Absent: diastolic murmur, gallop, rubs, systolic murmur - GI/Abdominal GI/Abdominal exam: Present: normal bowel sounds, soft, no peritoneal signs. Absent: distended, tenderness - Extremities Exam Extremities exam: Present: warm, radial pulses palpable and symmetrical. Absent : calf tenderness, cyanotic, pedal edema - Neurological Exam Neurological exam: Present: CN II-XII intact, oriented X3, no focal deficits. Absent: pronater drift, facial droop, speech deficit - Skin Skin exam: Present: dry, intact Internal Medicine: Result - Labs CBC & Chem 7: 03/18/17 04:46 03/18/17 04:46 Labs: Short CBC 03/18/17 Range/Units 04:46 WBC 11.5 H (4.3-11.1) K/mcL Hgb 10.8 L D (12.9-16.9) g/dL Hct 32.3 L (37.5-50.1) % Plt Count 182 (140-400) K/mcL BMP 03/18/17 04:46 Sodium 132 L Potassium 3.5 Chloride 100 Carbon Dioxide 22 BUN 3 L Creatinine 0.56 L Glucose 85 Calcium 7.9 L Liver Function 03/18/17 Range/Units 04:46 Total Bilirubin 0.9 (0.2-1.2) mg/dL AST 82 H (5-34) Units/L ALT 30 (0-55) Units/L Alkaline Phosphatase 611 H (38-126) Units/L Albumin 2.1 L D (3.5-5.0) g/dL Urine 03/17/17 Range/Units 18:23 Urine Color Dark Yellow (Yellow) Urine Clarity Cloudy A (Clear) Urine pH 6.0 (5.0-8.0) pH Units Ur Specific [place] 1.017 (1.010-1.025) Urine Protein Negative (Neg-Trace) mg/dL Urine Glucose (UA) Normal (Normal) mg/dL - ABG Interpretation ABG results: PT/INR, D-dimer PT 11.7 Seconds (9.4-12.1) 03/17/17 04:37 Consult Discharge Plan - Plan Referrals: Neeraj Bueno DO [Resident] -
[2017-03-18] MEDS ORDERED: ALPRAZolam 0.5 MG TABLET PO PRN (16:59)
[2017-03-18] MEDS: Famotidine 20 MG TABLET PO SCH (20:01)
[2017-03-19] MEDS: *HR* OxyCODONE Immed Rel 5 MG TABLET PO PRN ×2 (00:32→04:57)
[2017-03-19] MEDS: 0.9 % Sodium Chloride 1,000 ML IVC SCH ×3 (00:32→10:02)
[2017-03-19] MEDS: *HR* Enoxaparin 60 MG/0.6 ML SYRINGE SQ SCH (04:57)
[2017-03-19 05:12] LABS: Hematocrit 33.6 % (37.5-50.1); Hemoglobin 11.3 g/dL (12.9-16.9); Mean Corpuscular HGB Conc 33.6 g/dL (31.6-35.5); Mean Corpuscular Hemoglobin 33.3 pg (28.0-33.3); Mean Corpuscular Volume 99.1 fL (83.0-100.0); Mean Platelet Volume 9.8 fL (9.4-12.4); Platelet Count 206 K/mcL (140-400); Red Blood Count 3.39 M/mcL (4.19-5.50); Red Cell Distribution Width 13.4 % (11.5-14.5)
[2017-03-19 05:25] LABS: Alanine Aminotransferase 29 Units/L (0-55); Albumin/Globulin Ratio 0.7 (1.1-2.2); Alkaline Phosphatase 554 Units/L (38-126); Aspartate Amino Transferase 79 Units/L (5-34); BUN/Creatinine Ratio 4 (6-26); Bilirubin,Total 1.1 mg/dL (0.2-1.2); Carbon Dioxide 26 mEq/L (19-29); Chloride 99 mEq/L (98-109); Globulin 2.8 g/dL (2.4-3.5); Glucose 90 mg/dL (70-99); Osmolality,Calculated 268 (280-300); Potassium 3.7 mEq/L (3.5-4.5); Sodium 131 mEq/L (136-145); Total Protein 4.7 g/dL (6.0-8.3); eGFR For African Americans > 60 (> 60); eGFR For Non-African Americans > 60 (> 60)
[2017-03-19 05:30] LABS: Albumin 1.9 g/dL (3.5-5.0); Blood Urea Nitrogen < 2 mg/dL (8-26)
[2017-03-19 07:52] VITALS: BP 134/91
[2017-03-19] MEDS: Nicotine 21 MG PATCH.TD24 TD SCH (08:08)
[2017-03-19] MEDS: Aspirin Enteric Coated 81 MG Tablet PO SCH (08:08)
--- NOTE | 2017-03-19 09:05 | Discharge Summary ---
<Shante Martin - Last Filed: 03/19/17 09:03> Date of Encounter: 03/19/17 Time of Encounter: 09:03 - Discharge Diagnosis (1) Deep vein thrombosis of lower extremity Priority: Primary Status: Acute Qualifiers: Affected thrombotic vein of extremity: popliteal Chronicity: acute Laterality: left Qualified Code(s): I82.432 - Acute embolism and thrombosis of left popliteal vein (2) Pancreatic adenocarcinoma Priority: Secondary Status: Chronic (3) Hyponatremia Priority: Secondary Status: Acute (4) Compression fracture Priority: Secondary Status: Chronic (5) Left kidney mass Priority: Secondary Status: Chronic (6) Tobacco abuse Priority: Secondary Status: Chronic - Discharge Medications Prescriptions: OxyCODONE Immed Rel [Roxicodone 5 MG] 5 mg PO Q6HR PRN #21 tablet PRN Reason: Severe Pain Enoxaparin [Lovenox] 60 mg SQ Q12HR #60 syringe ALPRAZolam [Xanax 0.5 MG Tablet] 0.5 mg PO BID PRN #14 tablet PRN Reason: Anxiety Home Medications: Aspirin Enteric Coated [Aspirin EC] 81 mg PO DAILY 03/16/17 [History] Lansoprazole [Prevacid] 30 mg PO DAILY 03/16/17 [History] Ranitidine HCl [Heartburn Relief] 150 mg PO HS 03/16/17 [History] ALPRAZolam [Xanax 0.5 MG Tablet] 0.5 mg PO BID PRN #14 tablet 03/19/17 [Rx] Enoxaparin [Lovenox] 60 mg SQ Q12HR #60 syringe 03/19/17 [Rx] OxyCODONE Immed Rel [Roxicodone 5 MG] 5 mg PO Q6HR PRN #21 tablet 03/19/17 [Rx] Allergies/Adverse Reactions: 3 Allergy/AdvReac Type Severity Reaction Status Date / Time Iodinated Contrast- Oral and Allergy Swelling Verified 03/16/17 14:42 IV Dye of Lip/Tongue/Throat morphine Allergy Nausea Verified 03/16/17 14:42 Date of admission: 03/16/17 18:06 Primary care physician: PCP NONE Consults: 03/16/17 20:33 Consult Oncology Dietitian/Nutrtition [CONS] Routine 03/18/17 11:10 Consult to Stock Or Delivery Clerk [CONS] Routine Reason for SW Consult: lovenox Discharging clinician: Shante Martin Anticipated date of discharge: 03/19/17 - Patient Status Disposition: Home, Self-Care Condition: Serious Functional capacity at discharge: independent ambulation Overall status at discharge: patient is progressing back to baseline - Discharge Instructions Instructions: Hyponatremia (DC), Deep Venous Thrombosis (DC), Jaundice (DC) Follow Up With: Neeraj Bueno DO [Resident] - 03/26/17 4:00 pm - Diet and Activity Diet: advance to your usual diet Interval History: Patient lying in bed without complaints. States he has pain in his left leg. Hospital course: Mr. Cohen is a 51 year old male admitted for acute DVT of left lower extremity provoked by pancreatic cancer. This is his third DVT to date. He was treated with lovenox inpatient and will be discharged on same. - Time Spent with Patient Total time spent providing and/or coordinating discharge services: - Constitutional Vitals: Temp Pulse Resp BP Pulse Ox 98.1 F 94 20 134/91 94 03/19/17 07:51 03/19/17 07:51 03/19/17 06:30 03/19/17 07:51 03/19/17 08:10 General appearance: Present: cachectic, A&O X 3, no acute distress - Head Head exam: Present: atraumatic, normocephalic - Eye Eye exam: Present: PERRL, conjuntiva pink, sclera anicteric Pupils: Present: PERRL - Neck Neck exam general surgery: Present: supple, trachea midline - Respiratory Respiratory exam: Present: CTAB. Absent: accessory muscle use, rales, rhonchi, wheezes - Cardiovascular Cardiovascular exam: Present: RRR, +S1, +S2. Absent: diastolic murmur, gallop, rubs, systolic murmur - GI/Abdominal GI/Abdominal exam: Present: normal bowel sounds, soft, no peritoneal signs. Absent: distended, tenderness - Extremities Exam Extremities exam: Present: pedal edema (2+ pitting of L leg; right leg none), tenderness (Left leg; right leg none), warm - Neurological Exam Neurological exam: Present: CN II-XII intact, oriented X3, no focal deficits. Absent: pronater drift, facial droop, speech deficit <Willian Palma A - Last Filed: 03/19/17 15:46> Date of Encounter: 03/19/17 - Discharge Diagnosis (1) Deep vein thrombosis of lower extremity Status: Acute Qualifiers: Affected thrombotic vein of extremity: popliteal Chronicity: acute Laterality: left Qualified Code(s): I82.432 - Acute embolism and thrombosis of left popliteal vein (2) Pancreatic adenocarcinoma Status: Chronic (3) Tobacco abuse Status: Chronic (4) Hyponatremia Status: Resolved (5) Compression fracture Status: Chronic Date of admission: 03/16/17 18:06 Primary care physician: PCP NONE Consults: 03/16/17 20:33 Consult Oncology Dietitian/Nutrtition [CONS] Routine 03/18/17 11:10 Consult to Stock Or Delivery Clerk [CONS] Routine Reason for SW Consult: lovex Hospital course: Mr. Cohen is a 51 year old male - Time Spent with Patient Total time spent providing and/or coordinating discharge services: 39min - Constitutional Vitals: Temp Pulse Resp BP Pulse Ox 98.1 F 94 20 134/91 94 03/19/17 07:51 03/19/17 07:51 03/19/17 06:30 03/19/17 07:51 03/19/17 08:10 - Attending Attestation I examined this patient and my medical decision-making was reviewed with the Resident Physician on 03/18/17. I agree with the documented findings, disposition and treatment plan as described except to the extent set forth below. Mr. Cohen has been hospitalized for acute L popliteal DVT. He is on Lovenox and is afebrile with stable vitals. He is ready for discharge home with outpatient follow up. Exam Alert. Comfortable Heart reg No wheeze Abd soft. Plan D/C home today with Lovenox Crutches Follow up with PCP and heme/onc.
== END 2017-03-19 11:57 | disposition home or self-care (01) ==
LOC: 3BNU 14:38 → EMEROO 14:38 → 3BNU 18:44
PROVIDERS: ADMIT Nurse Practitioner Acute Care; ATTEND Registered Nurse

== ENCOUNTER 2017-04-17 19:33 | Inpatient (IN) ==
--- NOTE | 2017-04-17 19:36 | Emergency Department Note ---
Disposition Clinical Impression: Inferior pubic ramus fracture Disposition: Admitted As Inpatient Condition: Fair General Adult HPI - General Chief complaint: ED Extremity Injury, Lower Stated complaint: fall Time Seen by Provider: 04/17/17 19:34 - Related Data Home Medications Medication Instructions Recorded Confirmed Aspirin Enteric Coated [Aspirin EC] 81 mg PO DAILY 03/16/17 03/16/17 Lansoprazole [Prevacid] 30 mg PO DAILY 03/16/17 03/16/17 Ranitidine HCl [Heartburn Relief] 150 mg PO HS 03/16/17 03/16/17 Previous Rx's Medication Instructions Recorded ALPRAZolam [Xanax 0.5 MG Tablet] 0.5 mg PO BID PRN #14 tablet 03/19/17 Enoxaparin [Lovenox] 60 mg SQ Q12HR #60 syringe 03/19/17 OxyCODONE Immed Rel [Roxicodone 5 5 mg PO Q6HR PRN #21 tablet 03/19/17 MG] Allergies Allergy/AdvReac Type Severity Reaction Status Date / Time Iodinated Contrast- Oral and Allergy Swelling Verified 03/16/17 14:42 IV Dye of Lip/Tongue/Throat morphine Allergy Nausea Verified 03/16/17 14:42 Past Medical History - Past Medical History Medical history: Reports: cancer, COPD, DVT Psychiatric history: Reports: anxiety, depression - Social History Smoking Status: Current every day smoker Smokeless Tobacco Status: No Alcohol use: Reports: occasionally Drug use: Reports: none Course Vital Signs Temperature 97.9 F 04/17/17 19:35 Pulse Rate 104 04/17/17 19:35 Respiratory Rate 18 04/17/17 19:35 Blood Pressure 136/86 04/17/17 19:35 O2 Sat by Pulse Oximetry 97 04/17/17 19:35 Temperature 98.1 F 04/18/17 00:15 Pulse Rate 100 04/18/17 00:15 Respiratory Rate 18 04/18/17 00:15 Blood Pressure 116/78 04/18/17 00:15 O2 Sat by Pulse Oximetry 95 04/18/17 00:15 Oxygen Delivery Oxygen Delivery Room Air Medical Decision Making - Lab Data Result diagrams: 04/17/17 21:11 04/17/17 21:11 Attestation Statement - Attestation Attestation: I examined this patient and my medical decision-making was reviewed with the Resident Physician. I agree with the documented findings, disposition and treatment plan as described except to the extent set forth below. [id number] time provided Patient presents from home by EMS after a mechanical fall. He complains of right hip pain after the fall. His left lower extremity is asymmetrically swollen and he reports a history of a DVT for which he takes Lovenox
[2017-04-17] MEDS ORDERED: Ondansetron 4 MG/2 ML VIAL IVP ONE (19:37)
[2017-04-17] MEDS ORDERED: *HR* HYDROmorphone (PF) 1 MG/ML SYRINGE IVP ONE ×2 (19:37→20:39)
--- NOTE | 2017-04-17 20:00 | Emergency Department Note ---
Disposition Clinical Impression: Inferior pubic ramus fracture Qualifiers: Encounter type: initial encounter Fracture type: closed Laterality: right Qualified Code(s): S32.591A - Other specified fracture of right pubis, initial encounter for closed fracture Disposition: Admitted As Inpatient Condition: Fair Referrals: NONE,PCP [Primary Care Provider] - Forms: ED Satisfaction Letter Time of Disposition: 20:58 Lower Extremity Injury HPI - General Chief Complaint: ED Extremity Injury, Lower Stated Complaint: fall Time Seen by Provider: 04/17/17 19:34 Source: patient, EMS Mode of arrival: EMS Limitations: no limitations Nursing Notes Reviewed: Yes Vital Signs Reviewed: Yes - History of Present Illness HPI Narrative: 51-year-old male with a past history of pelvic cancer presents to the ED from EMS or right hip pain from a fall today. Patient states that he was cooking dinner and loss his balance and fell onto his right hip. He said is was unable to get up and had to call EMS. He states he also has a current DVT in his left leg and is on Lovenox. He states he did not hit his head when he fell. He did not lose consciousness. This was a mechanical fall he states. He still has sensation to his right leg. He has no nausea or vomiting, chest pain, shortness of breath, constipation/diarrhea, abdominal pain, fevers, chills, headache, blurry vision. Patient has no other complaints. - Related Data Home Medications Medication Instructions Recorded Confirmed Aspirin Enteric Coated [Aspirin EC] 81 mg PO DAILY 03/16/17 03/16/17 Lansoprazole [Prevacid] 30 mg PO DAILY 03/16/17 03/16/17 Ranitidine HCl [Heartburn Relief] 150 mg PO HS 03/16/17 03/16/17 Previous Rx's Medication Instructions Recorded ALPRAZolam [Xanax 0.5 MG Tablet] 0.5 mg PO BID PRN #14 tablet 03/19/17 Enoxaparin [Lovenox] 60 mg SQ Q12HR #60 syringe 03/19/17 OxyCODONE Immed Rel [Roxicodone 5 5 mg PO Q6HR PRN #21 tablet 03/19/17 MG] Allergies Allergy/AdvReac Type Severity Reaction Status Date / Time Iodinated Contrast- Oral and Allergy Swelling Verified 03/16/17 14:42 IV Dye of Lip/Tongue/Throat morphine Allergy Nausea Verified 03/16/17 14:42 Review of Systems: 10 point review of systems done and negative unless otherwise stated in the history of present illness. All systems ED: reviewed and negative except as stated. Review of Systems: As Per HPI Past Medical History - Past Medical History Attestation: Yes The following information was validated with the patient. Medical history: Reports: cancer, COPD, DVT Psychiatric history: Reports: anxiety, depression - Social History Smoking Status: Current every day smoker Smokeless Tobacco Status: No Alcohol use: Reports: occasionally Drug use: Reports: none Physical Exam - General Limitations: no limitations General appearance: alert - Head Head exam: atraumatic, normocephalic, normal inspection - ENT ENT exam: normal exam, normal oropharynx, mucous membranes moist - Neck Neck exam: Present: normal inspection, full ROM, trachea midline - Chest Chest inspection: Present: normal inspection, symmetric chest wall rise - Respiratory Respiratory exam: Present: normal lung sounds bilaterally - Cardiovascular Cardiovascular exam: Present: regular rate, normal rhythm, normal heart sounds - Abdominal Exam Abdominal exam: Present: soft, Non-Tender. Absent: tenderness, distention, guarding, rebound, rigidity - Expanded Lower Extremity Exam Hip/Pelvis exam: Present: tenderness (On right side of while palpating.). Absent: deformity, erythema Upper leg exam: Present: normal inspection, full ROM Knee exam: Present: full ROM Lower leg exam: Present: full ROM, swelling (Left leg is swollen due to known DVT based really being treated on.) Ankle exam: Present: full ROM Foot/toe exam: Present: full ROM Neurovascular/Tendon exam: Present: normal capillary refill. Absent: pulse deficit (She has good pedal pulses bilaterally.), motor deficit, sensory deficit , tendon deficit - Back Exam Back exam: Present: normal inspection, full ROM. Absent: tenderness - Neurological Exam Neurological exam: Present: alert, oriented X3 - Skin Skin exam: Present: warm, dry, intact, normal color Course Course Narrative: Particular male presents from a fall complaining of right hip pain. He did not hit his head he has no neck pain so we did not do a head CT or neck. We did get a x-ray of his hip. Due to him being in pain and I gave him 1 mg Dilaudid and Zofran. Patient had IV upon arrival. We will reassess once x-rays come back. This is a mechanical fall so there is no need to do further workup into a syncopal fall. Patient is okay with this plan Vital Signs Temperature 97.9 F 04/17/17 19:35 Pulse Rate 104 04/17/17 19:35 Respiratory Rate 18 04/17/17 19:35 Blood Pressure 136/86 04/17/17 19:35 O2 Sat by Pulse Oximetry 97 04/17/17 19:35 Temperature 97.9 F 04/17/17 19:35 Pulse Rate 104 04/17/17 19:35 Respiratory Rate 18 04/17/17 19:35 Blood Pressure 136/86 04/17/17 19:35 O2 Sat by Pulse Oximetry 97 04/17/17 19:35 Oxygen Delivery Oxygen Delivery Room Air Extremity Injury, Lower - MDM Narrative Medical decision making narrative: 51-year-old male presents to the ED for a mechanical fall. He states he did not his head did not lose consciousness and remembers the entire fall. A CT was not done. He states he fell onto his right side was complaining of right hip pain. He was unable to get up and walk. We did an x-ray of his right hip which did show an inferior rami fracture. This is an ambulatory fracture. We did try to get the patient up and walk. He was unable to do so. We have given him 1 mg of Dilaudid 2. He also got Zofran. We were unable to get him up to walk as it was too painful. So we felt that he needed be admitted due to not being able to. Spoke with the hospitalist agreed to admit the patient. Patient is admitted due to unable to ambulate. Patient's okay with this plan. Hip X-Ray 04/17/17 19:37 IMPRESSION: 1. Acute nondisplaced fracture of the right inferior pubic ramus. D/ / Dov Patel MD / Dov Patel MD Interpreting Provider: Dov Patel MD - Medical Records Medical records reviewed: Yes I reviewed the patient's medical records. - Lab Data Lab results reviewed: Yes I reviewed the patient's lab results. - Radiology Data Radiology results reviewed: Yes I reviewed the patient's radiology results.
[2017-04-17 21:17] LABS: Basophils # 0.1 K/mcL (0.0-0.2); Basophils % 0.5 %; Eosinophils % 0.1 %; Hematocrit 38.9 % (37.5-50.1); Hemoglobin 13.4 g/dL (12.9-16.9); Immature Granulocytes % 0.8 % (0-4); Immature Platelets 10.7 % (1.1-6.1); Lymphocytes # 1.7 K/mcL (0.6-4.6); Lymphocytes % 7.4 %; Mean Corpuscular HGB Conc 34.4 g/dL (31.6-35.5); Mean Corpuscular Hemoglobin 33.8 pg (28.0-33.3); Mean Platelet Volume 10.9 fL (9.4-12.4); Monocytes % 9.4 %; Neutrophils # 18.7 K/mcL (1.6-8.9); Nucleated Red Blood Cells 0.1 /100 WBC (0); Red Blood Count 3.97 M/mcL (4.19-5.50); Red Cell Distribution Width 14.7 % (11.5-14.5); Segmented Neutrophils % 81.8 %
[2017-04-17 21:18] LABS: Monocytes # 2.2 K/mcL (0.0-1.3)
[2017-04-17 21:19] LABS: Platelet Count 77 K/mcL (140-400)
[2017-04-17 21:29] LABS: Alanine Aminotransferase 42 Units/L (0-55); Albumin 2.7 g/dL (3.5-5.0); Albumin/Globulin Ratio 0.7 (1.1-2.2); Alkaline Phosphatase 587 Units/L (38-126); Aspartate Amino Transferase 114 Units/L (5-34); BUN/Creatinine Ratio 7 (6-26); Bilirubin,Total 3.3 mg/dL (0.2-1.2); Calcium 8.7 mg/dL (8.6-10.8); Carbon Dioxide 21 mEq/L (19-29); Chloride 96 mEq/L (98-109); Glucose 102 mg/dL (70-99); Osmolality,Calculated 265 (280-300); Potassium 4.4 mEq/L (3.5-4.5); Sodium 129 mEq/L (136-145); Total Protein 6.7 g/dL (6.0-8.3); eGFR For African Americans > 60 (> 60); eGFR For Non-African Americans > 60 (> 60)
[2017-04-17 21:32] LABS: Blood Urea Nitrogen 4 mg/dL (8-26)
[2017-04-17 21:34] LABS: Large Platelets Present (Not Present); Platelet Estimate Decreased (Normal); Toxic Granulation Present (Not Present)
[2017-04-17] MEDS ORDERED: *HR* OxyCODONE Immed Rel 5 MG TABLET PO PRN (23:17)
[2017-04-17] MEDS ORDERED: 0.9 % Sodium Chloride 1,000 ML IVC ONE (23:21)
[2017-04-17] MEDS ORDERED: D5% in 0.9% NACL 1,000 ML IVC SCH (23:30)
[2017-04-17] MEDS ORDERED: Ondansetron 4 MG/2 ML VIAL IVP PRN (23:32)
--- NOTE | 2017-04-17 23:37 | Internal Med History&Physical ---
Date of Encounter: 04/17/17 Time of Encounter: 23:33 Assessment and Plan (1) Pancreatic cancer Current visit: Yes Status: Acute Patient found on recent imaging to have concern for metastatic pancreatic cancer based on radiological appearance. Biopsy not yet performed and patient not willing to pursue this during this admission. Plan to follow-up with oncology as an outpatient. There appears to be metastasis to the liver. Patient is noticing functional decline and 20 pound weight loss over the past couple of months Qualifiers: Qualified Code(s): C25.9 - Malignant neoplasm of pancreas, unspecified (2) Leucocytosis Current visit: Yes Status: Acute Etiology for leukocytosis is unclear. Will check urinalysis and if it is unremarkable will get CT scan of chest abdomen pelvis. Check blood culture lactic acid. Hydrate. I will hold off antibiotics for now. He is afebrile with no clear source of infection, not hypotensive Qualifiers: Qualified Code(s): D72.829 - Elevated white blood cell count, unspecified (3) Pelvic fracture Current visit: Yes Status: Acute Consult physical therapy, occupational therapy, executive secretary social welfare. Consuls orthopedic surgery Qualifiers: Qualified Code(s): S32.9XXA - Fracture of unspecified parts of lumbosacral spine and pelvis, initial encounter for closed fracture (4) Deep vein thrombosis of lower extremity Current visit: No Status: Acute Will continue Lovenox 60 mg subcutaneous twice-daily. Qualifiers: Qualified Code(s): I82.409 - Acute embolism and thrombosis of unspecified deep veins of unspecified lower extremity Internal Medicine - H&P: HPI Chief complaint: fall History of present illness: Mr. Cohen is a 51 year old male with history of COPD not on home oxygen, recently diagnosed left leg DVT on anticoagulation with Lovenox 60 mg twice daily, recent concern for metastatic pancreatic cancer however patient has not yet decided to pursue further workup including biopsy presents the emergency room today after all. Patient states that he was cooking dinner and lost his balance and fell onto his right hip. He said is was unable to get up and bear weight on the right lower extremity. He denies loss of consciousness. He denies any recent fever chills diarrhea urinary symptoms. He has chronic cough denies increases through to production [place] wheezing. He had lost 20 pounds over the past month. Past Med Surg Social Fam HX - Past Medical History Medical history: cancer, COPD, DVT Psychiatric history: anxiety, depression - Social History Smoking Status: Current every day smoker Smokeless Tobacco Status: No Alcohol use: occasionally Drug use: none - Family History Father Living Status: Hx Family Cancer: Yes (skin) Mother Living Status: Hx Family Cancer: Yes (colon) Internal Medicine - H&P: Meds Aspirin Enteric Coated [Aspirin EC] 81 mg PO DAILY 03/16/17 [History] Lansoprazole [Prevacid] 30 mg PO DAILY 03/16/17 [History] Ranitidine HCl [Heartburn Relief] 150 mg PO HS 03/16/17 [History] ALPRAZolam [Xanax 0.5 MG Tablet] 0.5 mg PO BID PRN #14 tablet 03/19/17 [Rx] Enoxaparin [Lovenox] 60 mg SQ Q12HR #60 syringe 03/19/17 [Rx] OxyCODONE Immed Rel [Roxicodone 5 MG] 5 mg PO Q6HR PRN #21 tablet 03/19/17 [Rx] 3 Allergy/AdvReac Type Severity Reaction Status Date / Time Iodinated Contrast- Oral and Allergy Swelling Verified 03/16/17 14:42 IV Dye of Lip/Tongue/Throat morphine Allergy Nausea Verified 03/16/17 14:42 All Systems PM: A 10-system review of systems was performed and is negative for pertinent findings except as documented above in the HPI. Review of systems: 10 point review of systems is negative except for HPI - Constitutional Vitals: Temp Pulse Resp BP Pulse Ox 97.9 F 108 18 111/78 93 04/17/17 22:46 04/17/17 22:46 04/17/17 22:46 04/17/17 22:46 04/17/17 22:46 Exam: Gen.: patient is alert oriented times 3 not in distress cardiac: Normal S1, S2, no additional sounds or murmurs chest: Clear to auscultation Abdomen: Soft, non tender. No rebound lower extremity Ingreased girth of left leg compared to right Neuro: no focal deficits Internal Med - H&P Results - Labs CBC & Chem 7: 04/17/17 21:11 04/17/17 21:11 Labs: Short CBC 04/17/17 Range/Units 21:11 WBC 22.9 H (4.3-11.1) K/mcL Hgb 13.4 (12.9-16.9) g/dL Hct 38.9 (37.5-50.1) % Plt Count 77 L (140-400) K/mcL Neutrophils # 18.7 H (1.6-8.9) K/mcL BMP 04/17/17 21:11 Sodium 129 L Potassium 4.4 Chloride 96 L Carbon Dioxide 21 BUN 4 L Creatinine 0.59 L Glucose 102 H Calcium 8.7 Liver Function 04/17/17 Range/Units 21:11 Total Bilirubin 3.3 H (0.2-1.2) mg/dL AST 114 H (5-34) Units/L ALT 42 (0-55) Units/L Alkaline Phosphatase 587 H (38-126) Units/L Albumin 2.7 L (3.5-5.0) g/dL
[2017-04-18] MEDS: *HR* HYDROmorphone (PF) 1 MG/ML SYRINGE IVP PRN ×5 (00:52→20:53)
[2017-04-18 03:07] LABS: Bilirubin,Urine Negative (Negative); Blood,Urine Negative (Negative); Clarity,Urine Clear (Clear); Color,Urine Yellow (Yellow); Glucose,Urine (UA) Normal (Normal); Ketones,Urine Negative (Negative); Leukocyte Esterase,Urine Negative (Negative); Nitrite,Urine Negative (Negative); Protein,Urine Negative (Neg-Trace); Specific Gravity,Urine 1.009 (1.010-1.025); Urobilinogen,Urine Normal (Normal)
[2017-04-18 05:03] LABS: Basophils % 0.6 %
[2017-04-18 05:05] LABS: Basophils # 0.1 K/mcL (0.0-0.2); Eosinophils # 0.1 K/mcL (0.0-0.6); Eosinophils % 0.7 %; Hematocrit 35.2 % (37.5-50.1); Hemoglobin 11.8 g/dL (12.9-16.9); Immature Granulocytes % 0.6 % (0-4); Lymphocytes # 2.9 K/mcL (0.6-4.6); Lymphocytes % 17.6 %; Mean Corpuscular HGB Conc 33.5 g/dL (31.6-35.5); Mean Corpuscular Hemoglobin 33.1 pg (28.0-33.3); Mean Corpuscular Volume 98.6 fL (83.0-100.0); Monocytes # 2.1 K/mcL (0.0-1.3); Monocytes % 13.1 %; Neutrophils # 10.9 K/mcL (1.6-8.9); Red Blood Count 3.57 M/mcL (4.19-5.50); Segmented Neutrophils % 67.4 %
[2017-04-18 05:33] LABS: BUN/Creatinine Ratio 5 (6-26); C-Reactive Protein 70 mg/L (Less than 5); Calcium 8.3 mg/dL (8.6-10.8); Carbon Dioxide 23 mEq/L (19-29); Chloride 101 mEq/L (98-109); Glucose 103 mg/dL (70-99); Magnesium 1.4 mg/dL (1.6-2.6); Osmolality,Calculated 277 (280-300); Potassium 4.1 mEq/L (3.5-4.5); Sodium 135 mEq/L (136-145); eGFR For African Americans > 60 (> 60); eGFR For Non-African Americans > 60 (> 60)
[2017-04-18 05:34] LABS: Blood Urea Nitrogen 3 mg/dL (8-26)
[2017-04-18] MEDS ORDERED: *HR* Enoxaparin 60 MG/0.6 ML SYRINGE SQ SCH (06:00)
--- NOTE | 2017-04-18 07:20 | Orthopedic Consult Note ---
Date of Encounter: 04/18/17 Time of Encounter: 07:19 History of Present Illness HPI: Mr. Cohen is a 51 year old male History of fall yesterday complaining of pain right hip area. Denies head trauma Right lower extremity neurovascular intact limited motion secondary to pain X-rays and CT reviewed showing minimally displaced fracture right pubic rami Nonoperative treatment weightbearing as tolerated Past Med Surg Social Fam HX - Past Medical History Medical history: cancer, COPD, DVT Psychiatric history: anxiety, depression - Social History Smoking Status: Current every day smoker Smokeless Tobacco Status: No Alcohol use: occasionally Drug use: none - Family History Father Adopted: [place]: SARAH Age: 56 Family Member Ethnicity: Non- Living Status: Age at : 56 Cause of : unsure Hx Family Cardiac Disorders: No Hx Family Respiratory Disorders: No Hx Family Cancer: Yes (skin) Hx Family GI Disorders: Yes (ulcers) Hx Family Genitourinary Disorders: No Hx Family Endocrine Disorder: No Hx Family Musculoskeletal Disorders: Yes (quadraplegic) Hx Family Neuromuscular Disorders: No Hx Family Neurologic Disorders: No Hx Family HEENT Disorders: No Hx Family Autoimmune Disorders: No Hx Family Reproductive Disorders: No Hx Family Psychosocial Disorders: No Hx Family Medical Disorders: No Mother Adopted: [place]: Ewelina Age: 41 Family Member Ethnicity: Non- Living Status: Age at : 41 Cause of : Cancer Hx Family Cardiac Disorders: No Hx Family Respiratory Disorders: No Hx Family Cancer: Yes (colon) Hx Family GI Disorders: No Hx Family Genitourinary Disorders: No Hx Family Endocrine Disorder: No Hx Family Musculoskeletal Disorders: No Hx Family Neuromuscular Disorders: No Hx Family Neurologic Disorders: No Hx Family HEENT Disorders: No Hx Family Autoimmune Disorders: No Hx Family Reproductive Disorders: No Hx Family Psychosocial Disorders: No Hx Family Medical Disorders: No Medications and Allergies Aspirin Enteric Coated [Aspirin EC] 81 mg PO DAILY 03/16/17 [History] Lansoprazole [Prevacid] 30 mg PO DAILY 03/16/17 [History] Ranitidine HCl [Heartburn Relief] 150 mg PO HS 03/16/17 [History] ALPRAZolam [Xanax 0.5 MG Tablet] 0.5 mg PO BID PRN #14 tablet 03/19/17 [Rx] Enoxaparin [Lovenox] 60 mg SQ Q12HR #60 syringe 03/19/17 [Rx] OxyCODONE Immed Rel [Roxicodone 5 MG] 5 mg PO Q6HR PRN #21 tablet 03/19/17 [Rx] 3 Allergy/AdvReac Type Severity Reaction Status Date / Time Iodinated Contrast- Oral and Allergy Swelling Verified 03/16/17 14:42 IV Dye of Lip/Tongue/Throat morphine Allergy Nausea Verified 03/16/17 14:42 All Systems Reviewed: A 10-system review of systems was performed and is negative for pertinent findings except as documented above in the HPI. Physical Exam - Constitutional Vitals: Temp Pulse Resp BP Pulse Ox 98.0 F 97 19 121/77 94 04/18/17 03:36 04/18/17 03:36 04/18/17 03:36 04/18/17 03:36 04/18/17 03:36 Results - Labs Result Diagrams: 04/18/17 04:13 04/18/17 04:13 Labs: Abnormal lab results WBC 16.2 K/mcL (4.3-11.1) H 04/18/17 04:13 RBC 3.57 M/mcL (4.19-5.50) L 04/18/17 04:13 Hgb 11.8 g/dL (12.9-16.9) L D 04/18/17 04:13 Hct 35.2 % (37.5-50.1) L 04/18/17 04:13 RDW 15.0 % (11.5-14.5) H 04/18/17 04:13 Plt Count 66 K/mcL (140-400) L 04/18/17 04:13 Neutrophils # 10.9 K/mcL (1.6-8.9) H 04/18/17 04:13 Monocytes # 2.1 K/mcL (0.0-1.3) H 04/18/17 04:13 Nucleated RBCs/100 WBC 0.1 /100 WBC (0) H 04/17/17 21:11 Toxic Granulation Present (Not Present) A 04/17/17 21:11 Platelet Estimate Decreased (Normal) L 04/17/17 21:11 Large Platelets Present (Not Present) A 04/17/17 21:11 Immature Plt Fraction 9.5 % (1.1-6.1) H 04/18/17 04:13 Sodium 135 mEq/L (136-145) L 04/18/17 04:13 BUN 3 mg/dL (8-26) L 04/18/17 04:13 Creatinine 0.59 mg/dL (0.72-1.25) L 04/18/17 04:13 BUN/Creatinine Ratio 5 (6-26) L 04/18/17 04:13 Glucose 103 mg/dL (70-99) H 04/18/17 04:13 Calculated Osmolality 277 (280-300) L 04/18/17 04:13 Calcium 8.3 mg/dL (8.6-10.8) L 04/18/17 04:13 Magnesium 1.4 mg/dL (1.6-2.6) L 04/18/17 04:13 Total Bilirubin 3.3 mg/dL (0.2-1.2) H 04/17/17 21:11 AST 114 Units/L (5-34) H 04/17/17 21:11 Alkaline Phosphatase 587 Units/L (38-126) H 04/17/17 21:11 C-Reactive Protein 70 mg/L (Less than 5) H 04/18/17 04:13 Albumin 2.7 g/dL (3.5-5.0) L 04/17/17 21:11 Globulin 4.0 g/dL (2.4-3.5) H 04/17/17 21:11 Albumin/Globulin Ratio 0.7 (1.1-2.2) L 04/17/17 21:11 Ur Specific [place] 1.009 (1.010-1.025) L 04/18/17 02:20 H & H 04/17/17 04/18/17 Range/Units 21:11 04:13 Hgb 13.4 11.8 L D (12.9-16.9) g/dL Hct 38.9 35.2 L (37.5-50.1) % All other labs normal. Consult Discharge Plan - Plan Referrals: NONE,PCP [Primary Care Provider] -
[2017-04-18] MEDS: Aspirin Enteric Coated 81 MG Tablet PO SCH (09:49)
[2017-04-18] MEDS ORDERED: Magnesium Sulfate 2 GM in D5% in Water 100 ML IVPB ONE (10:28)
--- NOTE | 2017-04-18 13:06 | Oncology Inp Consult Note ---
Date of Encounter: 04/18/17 Time of Encounter: 12:52 Assessment and Plan (1) Thrombocytopenia Status: Acute Assessment and plan: - I explained to Mr. Cohen that at this time it's not clear why he has developed thrombocytopenia. Differential diagnosis includes: pseudothrombocytopenia ( will check a blood smear to rule out this possibility) , HIT ( agree with primary team ordering a PF4), consumption ( a repeated lower extremity US and a CT abdomen/pelvis would help to rule out this possibility), DIC ( not APTT, INR tested so far during this admission), less likely medication related or infection/sepsis in view of clinical presentation. - At this time his T score is consistent with intermediate, so I would recommend to start anticoagulation with non heparin product. I would prefer Bivalirudin in view of its short half life. I would not recommend argatroban in view his ongoing liver issues ( hyperbilirrubinemia, elevated LFTs). I would not recommend fondaparinux at this time in view of its long half life. Please start bivalirudin with an aptt goal between 1.5-2.5. If HIT panel (PF4 ) is negative, it would be ok to switch back to lovenox 1 mg /kg SQ BID ( as long as thrombocytopenia remains above 50K). If his HIT panel eventually is consistent with HIT, then he would need management for HIT ( usually transitioned to PO anticoagulation with coumadin once his platelet counts are consistently above 150K and no bleeding complications). - I explained him that if his CT abdomen/pelvis showed an hematoma, I'd consider to place an IVC filter and hold off on anticoagulation ( since an hematoma could explain his thrombocytopenia, and would make the HIT probability low ( 3). Recommendations: - FIRST, Order blood smear( stat, discussed with hematology lab). - Request GI consult. - If bood smear does not show evidence of pseudo thrombocytopenia: start Bivalirudin with an APTT goal 1.5-2.[address] abdomen/pelvis to rule out acute hematoma. - If CT shows a relative significant hematoma, consider IVC filter and holding off anticoagulation. Code(s): D69.6 - Thrombocytopenia, unspecified SNOMED Code(s): 203484156 (2) Deep vein thrombosis of lower extremity Status: Acute Assessment and plan: - Management as described above. Repeat lower extremity doppler US, and check CT abdomen/pelvis. - If blood smear does not show evidence of pseudo thrombocytopenia: Start bivalirudin APTT 1.5-2.5 for anticoagulation, and reassess once PF4 results are available. Qualifiers: Affected thrombotic vein of extremity: unspecified vein of extremity Chronicity: chronic Laterality: left Qualified Code(s): I82.502 - Chronic embolism and thrombosis of unspecified deep veins of left lower extremity (3) Pancreatic adenocarcinoma Status: Chronic Assessment and plan: - CT abdomen suggestive of stage IV pancreatic cancer. - We again discussed the option to attempt a liver biopsy during the course of the current hospitalization, but he again expressed his wishes to postpone it, although he was in agreement to reassess this decision once his current issues ( thrombocytopenia, hip fracture) are better controlled. (4) Hyperbilirubinemia Status: Acute Assessment and plan: - Findings concerning for malignant obstruction. Please check direct and indirect bilirrubin. Please request GI consult. - Assess biliary ducts in CT abdomen. Code(s): E80.6 - Other disorders of bilirubin metabolism SNOMED Code(s): 36975906 - Data of Consult Requesting Physician: Willian Palma DO Primary Care Provider: PCP NONE - Consult Narrative Reason for consult: management of thrombocytopenia. History of present illness: Mr. Cohen is a 51 year old male with history of pancreatic mass suspicious of stage IV pancreatic pancreas ( in view of concommitant liver lesion), history of DVT diagnosed with lower extremity US in March 16, 2017, recently admitted after being diagnosed with acute DVT and discharged with plans to follow up with oncology on March 22, 2017. 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 Patient reports that he had to cancel his appointment with oncology scheduled for march 22, after his truck got broken. He refused the option for a CT guided biiopsy of his liver lesion during his last hospital stay, but he report that would consider it in an outpatient basis once his acute issues related to his DVT had been improved. He reports that the swelling in his leg had improved and denies bleeding complications. He reports that the falls was not associated with chest pain, shortness of breath, focal weakness. he reports that he was holding a chicken leg in his right hand, he uses a cane, what made him difficult to keep the balance, then subsequently he suffered the fall. He reports that he did not lose consciousness and did not hit his head. Denies history of recurrent falls. Denies bleeding complications. HE has been on lovenox since March 16, 2017. .Denies recurrent thrombotic events. Past Med Surg Social Fam HX - Past Medical History Medical history: cancer, COPD, DVT Psychiatric history: anxiety, depression - Social History Smoking Status: Current every day smoker Smokeless Tobacco Status: No Alcohol use: occasionally Drug use: none - Family History Father Adopted: [place]: SARAH Age: 56 Family Member Ethnicity: Non- Living Status: Age at : 56 Cause of : unsure Hx Family Cardiac Disorders: No Hx Family Respiratory Disorders: No Hx Family Cancer: Yes (skin) Hx Family GI Disorders: Yes (ulcers) Hx Family Genitourinary Disorders: No Hx Family Endocrine Disorder: No Hx Family Musculoskeletal Disorders: Yes (quadraplegic) Hx Family Neuromuscular Disorders: No Hx Family Neurologic Disorders: No Hx Family HEENT Disorders: No Hx Family Autoimmune Disorders: No Hx Family Reproductive Disorders: No Hx Family Psychosocial Disorders: No Hx Family Medical Disorders: No Mother Adopted: [place]: Ewelina Age: 41 Family Member Ethnicity: Non- Living Status: Age at : 41 Cause of : Cancer Hx Family Cardiac Disorders: No Hx Family Respiratory Disorders: No Hx Family Cancer: Yes (colon) Hx Family GI Disorders: No Hx Family Genitourinary Disorders: No Hx Family Endocrine Disorder: No Hx Family Musculoskeletal Disorders: No Hx Family Neuromuscular Disorders: No Hx Family Neurologic Disorders: No Hx Family HEENT Disorders: No Hx Family Autoimmune Disorders: No Hx Family Reproductive Disorders: No Hx Family Psychosocial Disorders: No Hx Family Medical Disorders: No Medications and Allergies Aspirin Enteric Coated [Aspirin EC] 81 mg PO DAILY 03/16/17 [History] Lansoprazole [Prevacid] 30 mg PO DAILY 03/16/17 [History] Ranitidine HCl [Heartburn Relief] 150 mg PO HS 03/16/17 [History] ALPRAZolam [Xanax 0.5 MG Tablet] 0.5 mg PO BID PRN #14 tablet 03/19/17 [Rx] Enoxaparin [Lovenox] 60 mg SQ Q12HR #60 syringe 03/19/17 [Rx] OxyCODONE Immed Rel [Roxicodone 5 MG] 5 mg PO Q6HR PRN #21 tablet 03/19/17 [Rx] 3 Allergy/AdvReac Type Severity Reaction Status Date / Time Iodinated Contrast- Oral and Allergy Swelling Verified 03/16/17 14:42 IV Dye of Lip/Tongue/Throat morphine Allergy Nausea Verified 03/16/17 14:42 Constitutional: Absent: chills, daytime sleepiness, fever(s) Cardiovascular: Present: edema. Absent: dyspnea on exertion, palpitations Respiratory: Absent: wheezing, pain on inspiration Gastrointestinal: Absent: bloating, diarrhea, dyspepsia, dysphagia Musculoskeletal: Absent: back pain, joint swelling, neck pain Neurological: Present: lack of coordination. Absent: abnormal speech, behavioral changes, headache(s) Psychiatric: Absent: confusion, hallucinations Hematologic/Lymphatic: Present: easy bleeding Oncology - Exam - Constitutional Vitals: Temp Pulse Resp BP Pulse Ox 97.8 F 101 16 135/79 97 04/18/17 12:42 04/18/17 12:42 04/18/17 12:42 04/18/17 12:42 04/18/17 12:42 - Head Head exam: Present: normal inspection, normocephalic - Eye Eye exam: Present: EOMI, PERRL - ENT ENT exam: Present: normal exam - Neck Neck exam: Absent: meningismus, tenderness - Respiratory Respiratory exam: Present: CTAB. Absent: prolonged expiratory phase - Cardiovascular Cardiovascular exam: Present: RRR. Absent: systolic murmur - GI/Abdominal GI/Abdominal exam: Present: normal bowel sounds. Absent: organomegaly - Extremities Exam Extremities exam: Present: pedal edema (left lower extremity swelling.) - Back Exam Back exam: Present: normal inspection. Absent: paraspinal tenderness - Neurological Exam Neurological exam: Present: alert, oriented X3 - Psychiatric Psychiatric exam: Present: normal affect, normal mood Oncology - Results Labs: Short CBC 04/17/17 04/18/17 Range/Units 21:11 04:13 WBC 22.9 H 16.2 H (4.3-11.1) K/mcL Hgb 13.4 11.8 L D (12.9-16.9) g/dL Hct 38.9 35.2 L (37.5-50.1) % Plt Count 77 L 66 L (140-400) K/mcL Neutrophils # 18.7 H 10.9 H (1.6-8.9) K/mcL BMP 04/17/17 04/18/17 21:11 04:13 Sodium 129 L 135 L Potassium 4.4 4.1 Chloride 96 L 101 Carbon Dioxide 21 23 BUN 4 L 3 L Creatinine 0.59 L 0.59 L Glucose 102 H 103 H Calcium 8.7 8.3 L Liver Function 04/17/17 Range/Units 21:11 Total Bilirubin 3.3 H (0.2-1.2) mg/dL AST 114 H (5-34) Units/L ALT 42 (0-55) Units/L Alkaline Phosphatase 587 H (38-126) Units/L Albumin 2.7 L (3.5-5.0) g/dL Urine 04/18/17 Range/Units 02:20 Urine Color Yellow (Yellow) Urine Clarity Clear (Clear) Urine pH 7.0 (5.0-8.0) pH Units Ur Specific [place] 1.009 L (1.010-1.025) Urine Protein Negative (Neg-Trace) mg/dL Urine Glucose (UA) Normal (Normal) mg/dL Consult Discharge Plan - Plan Referrals: NONE,PCP [Primary Care Provider] -
--- NOTE | 2017-04-18 15:26 | Internal Med Progress Note ---
Date of Encounter: 04/18/17 Time of Encounter: 09:15 - Assessment and plan (1) Inferior pubic ramus fracture Current Visit: Yes Status: Acute Assessment and plan: Pt with nonsurgical fracture. PT/OT to evaluate and treat. Discharge planning. Qualifiers: Encounter type: subsequent encounter Fracture type: closed Laterality: right Fracture healing: with routine healing Qualified Code(s): S32.591D - Other specified fracture of right pubis, subsequent encounter for fracture with routine healing (2) Deep vein thrombosis of lower extremity Current Visit: Yes Status: Chronic Assessment and plan: DVT persists in LLE. Has been on Lovenox. Work up of thrombocytopenia in progress. Qualifiers: Affected thrombotic vein of extremity: iliac Chronicity: chronic Laterality: left Qualified Code(s): I82.522 - Chronic embolism and thrombosis of left iliac vein (3) Thrombocytopenia Current Visit: Yes Status: Acute Assessment and plan: Appreciate hematology input. Work up in progress. Lovenox currently on hold. (4) Leucocytosis Current Visit: Yes Status: Acute Assessment and plan: WBC markedly elevated on arrival Somewhat better today. No sign of acute infection. Suspect related to stress/cancer. Recheck tomorrow. Qualifiers: Leukocytosis type: other Qualified Code(s): D72.828 - Other elevated white blood cell count (5) Pancreatic adenocarcinoma Current Visit: No Status: Suspected Assessment and plan: Mass noted last month. Has not had further work up or seen outpatient oncology. (6) Tobacco abuse Current Visit: No Status: Chronic Assessment and plan: Cessation counselling. (7) Hypomagnesemia Current Visit: Yes Status: Acute Assessment and plan: Replete today and recheck tomorrow. (8) Hyponatremia Current Visit: No Status: Acute Assessment and plan: Hypotonic. On IV fluids. Recheck tomorrow. (9) Anemia Current Visit: Yes Status: Chronic Assessment and plan: Supportive care. Qualifiers: Anemia type: other cause Other causes of anemia: chronic disease, neoplastic Qualified Code(s): D63.0 - Anemia in neoplastic disease - Subjective Interval history: Mr. Cohen is currently in observation for acute R pubic rami fracture. He has been noted to have thrombocytopenia. Lovenox held. Mr Cohen is having some pain with movement. He says his L leg remains swollen. No fever or chills. No bleeding noted. Did not see Dr Sequeira on 10/2. Feels he is not going to be able to care for himself at this time. - Constitutional Vitals: Temp Pulse Resp BP Pulse Ox 97.8 F 101 16 135/79 97 04/18/17 12:42 04/18/17 12:42 04/18/17 12:42 04/18/17 12:42 04/18/17 12:42 General appearance: Present: A&O X 3, underweight, answers questions appropriately - Head Head exam: Present: normocephalic - Eye Eye exam: Present: conjuntiva pink - ENT ENT exam: Present: mucous membranes dry - Respiratory Respiratory exam: Present: decreased breath sounds, CTAB. Absent: rhonchi, wheezes - Cardiovascular Cardiovascular exam: Present: RRR. Absent: tachycardia - GI/Abdominal GI/Abdominal exam: Present: normal bowel sounds, soft. Absent: tenderness - Extremities Exam Extremities exam: Present: tenderness, warm Additional comments: LLE more swollen than R. Tender R pubic area. - Neurological Exam Neurological exam: Present: alert, oriented X3 - Skin Skin exam: Present: warm. Absent: rash Internal Medicine: Result - Labs CBC & Chem 7: 04/18/17 04:13 04/18/17 04:13 Labs: Short CBC 04/17/17 04/18/17 Range/Units 21:11 04:13 WBC 22.9 H 16.2 H (4.3-11.1) K/mcL Hgb 13.4 11.8 L D (12.9-16.9) g/dL Hct 38.9 35.2 L (37.5-50.1) % Plt Count 77 L TNP (140-400) K/mcL Neutrophils # 18.7 H 10.9 H (1.6-8.9) K/mcL BMP 04/17/17 04/18/17 21:11 04:13 Sodium 129 L 135 L Potassium 4.4 4.1 Chloride 96 L 101 Carbon Dioxide 21 23 BUN 4 L 3 L Creatinine 0.59 L 0.59 L Glucose 102 H 103 H Calcium 8.7 8.3 L Liver Function 04/17/17 Range/Units 21:11 Total Bilirubin 3.3 H (0.2-1.2) mg/dL AST 114 H (5-34) Units/L ALT 42 (0-55) Units/L Alkaline Phosphatase 587 H (38-126) Units/L Albumin 2.7 L (3.5-5.0) g/dL Urine 04/18/17 Range/Units 02:20 Urine Color Yellow (Yellow) Urine Clarity Clear (Clear) Urine pH 7.0 (5.0-8.0) pH Units Ur Specific [place] 1.009 L (1.010-1.025) Urine Protein Negative (Neg-Trace) mg/dL Urine Glucose (UA) Normal (Normal) mg/dL - VTE Documentation of Mechanical Device: Intermittent pneumatic compression device Consult Discharge Plan - Plan Referrals: NONE,PCP [Primary Care Provider] -
[2017-04-18] MEDS: *HR* OxyCODONE Immed Rel 5 MG TABLET PO PRN (19:56)
--- NOTE | 2017-04-18 21:05 | Event Note ---
Date of Encounter: 04/19/17 Time of Encounter: 21:04 Pubic Rami Fracture - non-operative Will make follow up with outpatient sports medicine. 04/19/17 - 1124 - 04/30/17 11:00AM Appt Card given to nurse
[2017-04-19] MEDS: Methyl Salicylate/Menthol 28 GM TUBE TP PRN ×2 (02:00→22:17)
[2017-04-19] MEDS: *HR* HYDROmorphone (PF) 1 MG/ML SYRINGE IVP PRN ×5 (02:03→22:16)
[2017-04-19] MEDS: Aspirin Enteric Coated 81 MG Tablet PO SCH (08:55)
[2017-04-19] MEDS: *HR* OxyCODONE Immed Rel 5 MG TABLET PO PRN ×2 (08:56→20:55)
[2017-04-19 13:27] LABS: Basophils % 0.2 %; Eosinophils % 0.1 %; Hematocrit 34.4 % (37.5-50.1); Hemoglobin 11.6 g/dL (12.9-16.9); Immature Granulocytes % 0.6 % (0-4); Lymphocytes # 1.7 K/mcL (0.6-4.6); Lymphocytes % 8.3 %; Mean Corpuscular HGB Conc 33.7 g/dL (31.6-35.5); Mean Corpuscular Hemoglobin 33.3 pg (28.0-33.3); Mean Corpuscular Volume 98.9 fL (83.0-100.0); Mean Platelet Volume 12.1 fL (9.4-12.4); Monocytes # 2.1 K/mcL (0.0-1.3); Monocytes % 10.1 %; Neutrophils # 16.4 K/mcL (1.6-8.9); Red Blood Count 3.48 M/mcL (4.19-5.50); Red Cell Distribution Width 15.2 % (11.5-14.5); Segmented Neutrophils % 80.7 %
[2017-04-19 13:29] LABS: Immature Platelets 10.4 % (1.1-6.1); Platelet Count 56 K/mcL (140-400)
[2017-04-19 13:55] LABS: Mean Platelet Volume 11.8 fL (9.4-12.4)
[2017-04-19] MEDS ORDERED: SODIUM CHLORIDE 0.9% IVC SCH (15:15)
[2017-04-19] MEDS ORDERED: BIVALIRUDIN IVC SCH (15:15)
[2017-04-19 16:44] LABS: INR 1.2; Prothrombin Time 13.5 Seconds (9.4-12.1)
--- NOTE | 2017-04-19 17:25 | Oncology Inp Progress Note ---
Date of Encounter: 04/19/17 Time of Encounter: 17:00 (1) Pancreatic mass Current Visit: No Status: Acute Assessment and plan: We had a very educated discussion today. He does not want to pursue biopsy. When posed the situation that we suspect this is cancer, he stated in no uncertain terms that he would not want chemotherapy. I think this is reasonable. Therefore, we will not pursue biopsy. Once in an outpatient setting, we discussed the utility of hospice care, and he thinks he would benefit from this. Hospice should be ordered at time of discharge. We discussed life sustaining interventions. He does not wish for CPR/ intubation or other life prolonging invasive procedures. I have ordered DNR status. I will continue to follow clinically and will provide contact information moving forward. (2) Deep vein thrombosis of lower extremity Current Visit: Yes Status: Chronic Assessment and plan: Please start Eliquis 5 mg bid or Xarelto 20 mg daily. I think NOACs are reasonable in the setting of cancer, especially in this palliative case as only a very small fraction of patients fail therapy and require lovenox. this should improve his QoL. Qualifiers: Affected thrombotic vein of extremity: iliac Chronicity: chronic Laterality: left Qualified Code(s): I82.522 - Chronic embolism and thrombosis of left iliac vein (3) Thrombocytopenia Current Visit: Yes Status: Acute Assessment and plan: This appears secondary to platelet clumping. Low suspicion of HIT given lovenox use, but is certainly a possibility. Awaiting PF4 study. I think a good option would be NOAC as noted above. These have been found to be safe and effective in small patient series for HIT. This was d/w Dr. Palma. Oncology: Subj Interval history: Feeling okay overall. Frustrated by number of needle sticks/phlebotomy. Pain in pelvis controlled. Afebrile. Planning for rehab potentially. Patient is not interested in pursuing biopsy, as he is not interested in pursuing palliative therapies if this is cancer. He does not want aggressive measures. Regarding anticoagulation, discussed current clinical concerns of platelet clumping and possiblity of HIT. D/W Dr. Palma and recommended NOAC with xarelto or eliquis. - Constitutional Vitals: Vital Signs Temp Pulse Resp BP Pulse Ox 04/19/17 14:52 97.7 F 108 16 118/82 94 Intake and Output 04/19/17 04/19/17 04/20/17 08:59 16:59 00:59 Intake Total 0 / 0 Output Total 0 / 125 Balance 0 / -125 Intake: Oral 0 / 0 Output: Urine 0 / 125 - Head Head exam: Present: atraumatic, normal inspection, normocephalic - Eye Eye exam: Present: normal appearance, conjuntiva pink, sclera anicteric - ENT ENT exam: Present: mucous membranes moist, normal exam, normal oropharynx - Neck Neck exam: Present: full ROM, normal inspection - Respiratory Respiratory exam: Present: CTAB - Cardiovascular Cardiovascular exam: Present: RRR - GI/Abdominal GI/Abdominal exam: Present: normal bowel sounds, soft - Extremities Exam Extremities exam: Present: normal inspection - Neurological Exam Neurological exam: Present: alert, CN II-XII intact, oriented X3 Oncology: Obj Data - Labs CBC & Chem 7: 04/19/17 13:19 04/18/17 04:13 Labs: Laboratory Results - last 24 hr 04/19/17 16:23 PT 13.5 H INR 1.2 - ABG Interpretation ABG results: PT/INR, D-dimer PT 13.5 Seconds (9.4-12.1) H 04/19/17 16:23 Consult Discharge Plan - Plan Referrals: NONE,PCP [Primary Care Provider] -
--- NOTE | 2017-04-19 17:47 | Internal Med Progress Note ---
Date of Encounter: 04/19/17 Time of Encounter: 16:45 - Assessment and plan (1) Inferior pubic ramus fracture Current Visit: Yes Status: Acute Assessment and plan: Nonsurgical treatment. Recommended SNF at discharge. Qualifiers: Encounter type: subsequent encounter Fracture type: closed Laterality: right Fracture healing: with routine healing Qualified Code(s): S32.591D - Other specified fracture of right pubis, subsequent encounter for fracture with routine healing (2) Deep vein thrombosis of lower extremity Current Visit: Yes Status: Chronic Assessment and plan: DVT persists in LLE. Started on Xarelto today. Qualifiers: Affected thrombotic vein of extremity: iliac Chronicity: chronic Laterality: left Qualified Code(s): I82.522 - Chronic embolism and thrombosis of left iliac vein (3) Thrombocytopenia Current Visit: Yes Status: Acute Assessment and plan: Most likely pseudothrombocytopenia. (4) Leucocytosis Current Visit: Yes Status: Acute Assessment and plan: WBC remains elevated. Procalcitonin ordered. No overt sign of infection. Qualifiers: Leukocytosis type: other Qualified Code(s): D72.828 - Other elevated white blood cell count (5) Pancreatic adenocarcinoma Current Visit: No Status: Suspected Assessment and plan: Does not want further workup or treatment. (6) Tobacco abuse Current Visit: No Status: Chronic Assessment and plan: Cessation counselling. (7) Hypomagnesemia Current Visit: Yes Status: Acute Assessment and plan: Replaced. (8) Hyponatremia Current Visit: No Status: Acute Assessment and plan: Follow. (9) Anemia Current Visit: Yes Status: Chronic Assessment and plan: Supportive care. Qualifiers: Anemia type: other cause Other causes of anemia: chronic disease, neoplastic Qualified Code(s): D63.0 - Anemia in neoplastic disease - Subjective Interval history: Mr. Cohen is currently admitted for acute R pubic rami fracture. He has been noted to have thrombocytopenia. He remains moderate to high risk due to potential for worsening clinical status. Mr Cohen feels OK. Pain is fairly controlled. No fever or chills. No CP or SOB. Is interested in going to rehab if this is an option. No GI issues. Appreciate Dr. Sequeira input regarding situation and plan. - Constitutional Vitals: Temp Pulse Resp BP Pulse Ox 97.7 F 108 16 118/82 94 04/19/17 14:52 04/19/17 14:52 04/19/17 14:52 04/19/17 14:52 04/19/17 14:52 General appearance: Present: A&O X 3, underweight, answers questions appropriately - Head Head exam: Present: normocephalic - Eye Eye exam: Present: EOMI, conjuntiva pink - ENT ENT exam: Present: mucous membranes moist - Respiratory Respiratory exam: Present: CTAB. Absent: rhonchi, wheezes - Cardiovascular Cardiovascular exam: Present: RRR. Absent: tachycardia - GI/Abdominal GI/Abdominal exam: Present: soft. Absent: tenderness - Extremities Exam Extremities exam: Present: warm. Absent: tenderness - Neurological Exam Neurological exam: Present: alert, oriented X3, no focal deficits Internal Medicine: Result - Labs CBC & Chem 7: 04/19/17 13:19 04/18/17 04:13 - ABG Interpretation ABG results: PT/INR, D-dimer PT 13.5 Seconds (9.4-12.1) H 04/19/17 16:23 - VTE Documentation of Mechanical Device: Intermittent pneumatic compression device Consult Discharge Plan - Plan Referrals: NONE,PCP [Primary Care Provider] -
[2017-04-19] MEDS: *HR* Rivaroxaban 10 MG TABLET PO SCH (19:14)
[2017-04-19 19:31] LABS: Bilirubin,Urine Moderate (Negative); Blood,Urine Negative (Negative); Clarity,Urine Cloudy (Clear); Color,Urine Orange (Yellow); Glucose,Urine (UA) Normal (Normal); Ketones,Urine Trace mg/dL (Negative); Leukocyte Esterase,Urine Moderate (Negative); Nitrite,Urine Positive (Negative); Protein,Urine Negative (Neg-Trace); Specific Gravity,Urine 1.023 (1.010-1.025)
[2017-04-19 19:37] LABS: Bacteria,Urine Few per hpf (None-Few); Hyaline Casts,Urine None Seen per lpf (None-Few); Squamous Epithelial Cell,Urine Many per lpf (None-Few); WBC,Urine 30-50 per hpf (0-3)
[2017-04-19 20:27] LABS: RBC,Urine 0-3 per hpf (0-3)
[2017-04-20] MEDS: *HR* HYDROmorphone (PF) 1 MG/ML SYRINGE IVP PRN ×6 (03:15→21:25)
[2017-04-20 04:19] LABS: Hematocrit 33.3 % (37.5-50.1); Hemoglobin 11.3 g/dL (12.9-16.9); Immature Platelets 10.5 % (1.1-6.1); Mean Corpuscular HGB Conc 33.9 g/dL (31.6-35.5); Mean Corpuscular Hemoglobin 33.2 pg (28.0-33.3); Mean Corpuscular Volume 97.9 fL (83.0-100.0); Mean Platelet Volume 11.4 fL (9.4-12.4); Red Blood Count 3.4 M/mcL (4.19-5.50); Red Cell Distribution Width 15.1 % (11.5-14.5)
[2017-04-20 04:33] LABS: BUN/Creatinine Ratio 9 (6-26); Calcium 7.9 mg/dL (8.6-10.8); Carbon Dioxide 25 mEq/L (19-29); Chloride 98 mEq/L (98-109); Glucose 86 mg/dL (70-99); Magnesium 1.2 mg/dL (1.6-2.6); Osmolality,Calculated 271 (280-300); Potassium 3.7 mEq/L (3.5-4.5); Sodium 132 mEq/L (136-145); eGFR For African Americans > 60 (> 60); eGFR For Non-African Americans > 60 (> 60)
[2017-04-20 04:34] LABS: Blood Urea Nitrogen 5 mg/dL (8-26)
[2017-04-20] MEDS: Methyl Salicylate/Menthol 28 GM TUBE TP PRN (04:34)
[2017-04-20] MEDS: Aspirin Enteric Coated 81 MG Tablet PO SCH (07:53)
[2017-04-20] MEDS: cefTRIAXone 1,000 MG in Water for inj. (sterile) 10 ML IVP SCH (10:57)
[2017-04-20] MEDS: *HR* Rivaroxaban 10 MG TABLET PO SCH (18:03)
--- NOTE | 2017-04-20 18:43 | Oncology Inp Progress Note ---
Date of Encounter: 04/20/17 Time of Encounter: 18:15 (1) Pancreatic mass Current Visit: No Status: Acute Assessment and plan: I again reviewed our current clinical situation and reaffirmed he does not want to pursue biopsy or care. I think he has impending liver failure/obstruction. Given current wishes, unsure if he would pursue ERCP. Will obtain LFTs in AM to further evaluate. Would consider GI consult for ERCP if LFTs worsening I have ordered DNR status. I will continue to follow clinically and have provided contact information moving forward. (2) Deep vein thrombosis of lower extremity Current Visit: Yes Status: Chronic Assessment and plan: Please start Eliquis 5 mg bid or Xarelto 20 mg daily. I think NOACs are reasonable in the setting of cancer, especially in this palliative case as only a very small fraction of patients fail therapy and require lovenox. this should improve his QoL. Qualifiers: Affected thrombotic vein of extremity: iliac Chronicity: chronic Laterality: left Qualified Code(s): I82.522 - Chronic embolism and thrombosis of left iliac vein (3) Thrombocytopenia Current Visit: Yes Status: Acute Assessment and plan: This appears secondary to platelet clumping. Low suspicion of HIT given lovenox use, but is certainly a possibility. Awaiting PF4 study. I think a good option would be NOAC as noted above. These have been found to be safe and effective in small patient series for HIT. This was d/w Dr. Palma. Oncology: Subj Interval history: Feeling okay. Worked with PT today a bit. Urine is now dark, "like tea". Afebrile. Confirms he does not want to pursue therapy or biopsy. - Constitutional Vitals: Vital Signs Temp Pulse Resp BP Pulse Ox 04/20/17 14:22 98.3 F 87 14 98/69 95 04/20/17 08:18 98.1 F 109 18 102/71 92 04/20/17 03:03 98.3 F 109 17 105/65 92 04/19/17 23:09 97.6 F 89 17 110/85 95 04/19/17 20:02 98.0 F 98 17 109/80 94 Intake and Output 04/20/17 04/20/17 04/21/17 08:59 16:59 00:59 Intake Total 0 / 0 130 / 130 Output Total 0 / 0 Balance 0 / 0 130 / 130 Intake: IV Fluids Rocephin 1,000 MG In Water for inj. (sterile) 10 ML @ 300 mls/ hr IVP Q24H [facility] Rx#:[id number] Oral 0 / 0 120 / 120 Output: Urine 0 / 0 Other: Meal Breakfast Percent of Meal Consumed 50% General appearance: no acute distress, thin - Head Head exam: Present: atraumatic, normal inspection, normocephalic - Eye Eye exam: Present: conjuntiva pink, sclera anicteric - ENT ENT exam: Present: mucous membranes moist, normal oropharynx - Neck Neck exam: Present: full ROM, normal inspection - Respiratory Respiratory exam: Present: CTAB - Cardiovascular Cardiovascular exam: Present: RRR - GI/Abdominal GI/Abdominal exam: Present: normal bowel sounds, soft - Extremities Exam Extremities exam: Present: normal inspection - Neurological Exam Neurological exam: Present: alert, CN II-XII intact, oriented X3 Oncology: Obj Data - Labs CBC & Chem 7: 04/20/17 03:27 04/20/17 03:27 Labs: Laboratory Results - last 24 hr 04/19/17 04/20/17 04/20/17 19:25 03:27 03:27 WBC 15.5 H RBC 3.40 L Hgb 11.3 L Hct 33.3 L MCV 97.9 MCH 33.2 MCHC 33.9 RDW 15.1 H Plt Count 62 L MPV 11.4 Immature Plt Fraction 10.5 H Sodium 132 L Potassium 3.7 Chloride 98 Carbon Dioxide 25 BUN 5 L Creatinine 0.54 L Est GFR ( Amer) > 60 Est GFR (Non-Af Amer) > 60 BUN/Creatinine Ratio 9 Glucose 86 Calculated Osmolality 271 L Calcium 7.9 L Magnesium 1.2 L Urine Color [place] A Urine Clarity Cloudy A Urine pH 6.0 Ur Specific [place] 1.023 Urine Protein Negative Urine Glucose (UA) Normal Urine Ketones Trace H Urine Blood Negative Urine Nitrite Positive A Urine Bilirubin Moderate H Urine Urobilinogen 4.0 H Ur Leukocyte Esterase Moderate H Urine Microscopic RBC 0-3 Urine Microscopic WBC 30-50 H Ur Squamous Epith Cells Many H Urine Bacteria Few Hyaline Casts None Seen Ur Culture Indicated? YES A - ABG Interpretation ABG results: PT/INR, D-dimer PT 13.5 Seconds (9.4-12.1) H 04/19/17 16:23 Consult Discharge Plan - Plan Referrals: NONE,PCP [Primary Care Provider] -
--- NOTE | 2017-04-20 19:13 | Internal Med Progress Note ---
Date of Encounter: 04/20/17 Time of Encounter: 19:11 - Assessment and plan (1) UTI (urinary tract infection) Current Visit: Yes Status: Acute Assessment and plan: Ceftriaxone started. Qualifiers: Urinary tract infection type: acute cystitis Hematuria presence: with hematuria Qualified Code(s): N30.01 - Acute cystitis with hematuria (2) Inferior pubic ramus fracture Current Visit: Yes Status: Acute Assessment and plan: Nonsurgical treatment. Working on SNF placement. Qualifiers: Encounter type: subsequent encounter Fracture type: closed Laterality: right Fracture healing: with routine healing Qualified Code(s): S32.591D - Other specified fracture of right pubis, subsequent encounter for fracture with routine healing (3) Deep vein thrombosis of lower extremity Current Visit: Yes Status: Chronic Assessment and plan: DVT persists in LLE. Started on Xarelto. 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 (5) Leucocytosis Current Visit: Yes Status: Acute Assessment and plan: WBC remains elevated. Procalcitonin pending. Has UTI on UA. Qualifiers: Leukocytosis type: other Qualified Code(s): D72.828 - Other elevated white blood cell count (6) Pancreatic adenocarcinoma Current Visit: No Status: Suspected Assessment and plan: Does not want further workup or treatment. (7) Tobacco abuse Current Visit: No Status: Chronic Assessment and plan: Cessation counselling. (8) Hypomagnesemia Current Visit: Yes Status: Resolved (9) Hyponatremia Current Visit: No Status: Acute Assessment and plan: Follow. (10) Anemia Current Visit: Yes Status: Chronic Assessment and plan: Supportive care. Qualifiers: Anemia type: other cause Other causes of anemia: chronic disease, neoplastic Qualified Code(s): D63.0 - Anemia in neoplastic disease - Subjective Interval history: Mr. Cohen is currently admitted for acute R pubic rami fracture. He has been noted to have thrombocytopenia. He remains moderate to high risk due to potential for worsening clinical status. Mr Cohen is doing OK. No new issues. Awaiting rehab placement. LFTs ordered tomorrow. Appreciate Dr. Sequeira input regarding situation and plan. - Constitutional Vitals: Temp Pulse Resp BP Pulse Ox 98.3 F 87 14 98/69 95 04/20/17 14:22 04/20/17 14:22 04/20/17 14:22 04/20/17 14:22 04/20/17 14:22 General appearance: Present: A&O X 3, underweight, answers questions appropriately - Head Head exam: Present: normocephalic - Eye Eye exam: Present: conjuntiva pink - ENT ENT exam: Present: mucous membranes moist - Respiratory Respiratory exam: Present: decreased breath sounds. Absent: rhonchi, wheezes - Cardiovascular Cardiovascular exam: Present: RRR. Absent: tachycardia - GI/Abdominal GI/Abdominal exam: Present: soft - Neurological Exam Neurological exam: Present: alert, oriented X3 Internal Medicine: Result - Labs CBC & Chem 7: 04/20/17 03:27 04/20/17 03:27 Labs: Short CBC 04/20/17 Range/Units 03:27 WBC 15.5 H (4.3-11.1) K/mcL Hgb 11.3 L (12.9-16.9) g/dL Hct 33.3 L (37.5-50.1) % Plt Count 62 L (140-400) K/mcL BMP 04/20/17 03:27 Sodium 132 L Potassium 3.7 Chloride 98 Carbon Dioxide 25 BUN 5 L Creatinine 0.54 L Glucose 86 Calcium 7.9 L Urine 04/19/17 Range/Units 19:25 Urine Color [place] A (Yellow) Urine Clarity Cloudy A (Clear) Urine pH 6.0 (5.0-8.0) pH Units Ur Specific [place] 1.023 (1.010-1.025) Urine Protein Negative (Neg-Trace) mg/dL Urine Glucose (UA) Normal (Normal) mg/dL - ABG Interpretation ABG results: PT/INR, D-dimer PT 13.5 Seconds (9.4-12.1) H 04/19/17 16:23 - VTE Documentation of Mechanical Device: Intermittent pneumatic compression device Consult Discharge Plan - Plan Referrals: NONE,PCP [Primary Care Provider] -
[2017-04-21] MEDS: *HR* HYDROmorphone (PF) 1 MG/ML SYRINGE IVP PRN ×6 (00:36→20:04)
[2017-04-21 08:14] LABS: Alanine Aminotransferase 48 Units/L (0-55); Albumin/Globulin Ratio 0.5 (1.1-2.2); Alkaline Phosphatase 470 Units/L (38-126); Aspartate Amino Transferase 175 Units/L (5-34); BUN/Creatinine Ratio 12 (6-26); Bilirubin,Total 3.5 mg/dL (0.2-1.2); Blood Urea Nitrogen 7 mg/dL (8-26); Calcium 8.1 mg/dL (8.6-10.8); Carbon Dioxide 25 mEq/L (19-29); Chloride 94 mEq/L (98-109); Globulin 3.4 g/dL (2.4-3.5); Glucose 73 mg/dL (70-99); Osmolality,Calculated 265 (280-300); Sodium 129 mEq/L (136-145); Total Protein 5.2 g/dL (6.0-8.3); eGFR For African Americans > 60 (> 60); eGFR For Non-African Americans > 60 (> 60)
[2017-04-21 08:19] LABS: Albumin 1.8 g/dL (3.5-5.0)
--- NOTE | 2017-04-21 09:33 | Gastroenterology Consult Note ---
<ThorlimaSarah Weir - Last Filed: 04/21/17 09:30> Date of Encounter: 04/21/17 Time of Encounter: 09:31 - Assessment and plan (1) Hyperbilirubinemia Current Visit: No Status: Acute Assessment and plan: Mr. Cohen is demonstrating elevation of his bilirubin continues to trend upwards currently at 3.5 for total bilirubin. His urine is orange, he denies helen-colored stools. He denies pruritus, scleral icterus, jaundice - Hyperbilirubinemia likely secondary to pancreatic mass causing obstruction of common biliary duct this is supported by known metastatic pancreatic mass with significant invasion, elevated bilirubin, significantly elevated alkaline phosphatase, elevated AST. Of note he also has significant invasion of his spleen which may be contributing to his elevated bilirubin levels. - I discussed ERCP with attempt at placing stents for palliative measures, and emphasized that this is not a curative measure for his pancreatic mass. After discussion regarding the procedure Mr. Cohen is agreeable to undergo ERCP with attempt at stent placement for palliative measures. (2) Pancreatic mass Current Visit: No Status: Acute Assessment and plan: Mr. Cohen 51-year-old male recently diagnosed with pancreatic cancer, has followed up with oncology and has declined therapy and treatment for his pancreatic mass. A thorough discussion regarding his pancreatic mass took place today and the patient continues to refuse treatments or therapies for his pancreatic mass. CT of the abdomen and pelvis from 02/25/2017 demonstrated a heterogeneous solid and cystic lesion within the pancreas measuring up to 8.5 cm demonstrating invasion and involvement of almost the entire spleen. There were also findings of metastatic disease to the liver and upper abdominal lymphadenopathy demonstrating multiple necrotic lymph nodes in the ti hepatis and gastrohepatic region. - Mr. Cohen continues to refuse therapy and treatment for his pancreatic mass including biopsy for evaluation. - He is agreeable for an ERCP and stent placement for palliative measures. - Time Spent With Patient Total time spent is greater than 50% in coordination of care (as documented) at patient's floor/unit and/or counseling patient: GI History of Present Illness - Data of Consult Consult date: 04/21/17 Requesting Physician: Willian Palma DO - Consult Narrative Reason for consult: ERCP with palliative stent placement History of present illness: Mr. Cohen is a 51 year old male known history of COPD not on oxygen to home, left lower extremity DVT on anticoagulation, recent diagnosis of pancreatic mass with significant invasion of surrounding organs was admitted with a pelvic fracture secondary to a fall. Gastroenterology was consult it for potential ERCP and placement of stent for palliative measures as Mr. Cohen continues to refuse treatment or biopsy of his pancreatic mass. Mr. Cohen states that he is recently diagnosed with pancreatic cancer and continues to refuse workup evaluation and treatment. After discussion regarding his elevated bilirubin and potential causes he denies any noticeable yellowing of his eyes, yellowing of his skin, diffuse itching, any helen-colored or may stools or change in the caliber of his stool. He does mention he noticed some spots of blood but his stool remains brown in color. He denies urinating any blood but has noticed that his urine is orange in color which is new. He denies any hemoptysis or hematemesis but does mention that he has had some coughing up of yellow colored sputum. He denies fevers chills change in vision, change in breathing, chest pain palpitations. He does have abdominal discomfort and fullness but denies much change in his appetite or stool function. After thorough discussion regarding ERCP and stent placement he said that he is agreeable to undergo this treatment to help with his symptoms. He denies ever having an endoscopy, colonoscopy or frequent use of NSAIDs. He does use Ranitidine for heart burn. Colonoscopy: Denies EGD: Denies Past Med Surg Social Fam HX - Past Medical History Medical history: cancer, COPD, DVT Psychiatric history: anxiety, depression - Social History Smoking Status: Current every day smoker Smokeless Tobacco Status: No Alcohol use: occasionally Drug use: none - Family History Father Adopted: [place]: SARAH Age: 56 Family Member Ethnicity: Non- Living Status: Age at : 56 Cause of : unsure Hx Family Cardiac Disorders: No Hx Family Respiratory Disorders: No Hx Family Cancer: Yes (skin) Hx Family GI Disorders: Yes (ulcers) Hx Family Genitourinary Disorders: No Hx Family Endocrine Disorder: No Hx Family Musculoskeletal Disorders: Yes (quadraplegic) Hx Family Neuromuscular Disorders: No Hx Family Neurologic Disorders: No Hx Family HEENT Disorders: No Hx Family Autoimmune Disorders: No Hx Family Reproductive Disorders: No Hx Family Psychosocial Disorders: No Hx Family Medical Disorders: No Mother Adopted: [place]: Ewelina Age: 41 Family Member Ethnicity: Non- Living Status: Age at : 41 Cause of : Cancer Hx Family Cardiac Disorders: No Hx Family Respiratory Disorders: No Hx Family Cancer: Yes (colon) Hx Family GI Disorders: No Hx Family Genitourinary Disorders: No Hx Family Endocrine Disorder: No Hx Family Musculoskeletal Disorders: No Hx Family Neuromuscular Disorders: No Hx Family Neurologic Disorders: No Hx Family HEENT Disorders: No Hx Family Autoimmune Disorders: No Hx Family Reproductive Disorders: No Hx Family Psychosocial Disorders: No Hx Family Medical Disorders: No - Gastrointestinal Gastrointestinal: Present: abdominal pain, nausea, other (Occasional spots of blood). Absent: coffee ground emesis, constipation, diarrhea, hematemesis, hematochezia, vomiting - Constitutional Constitutional: anorexia, weight loss - Cardiovascular Cardiovascular ROS: Absent: chest pain, irregular heart rhythm, palpitations - Respiratory Respiratory IM: Present: cough (Productive yellow in color). Absent: hemoptysis - Genitourinary Genitourinary: Present: change in color ([place] urine) - Neurological ROS Neurological GI: Absent: confusion, dizziness, headache(s) - Musculoskeletal Musculoskeletal ROS GI: Absent: back pain, joint swelling - Integumentary Integumentary GI: Absent: jaundice, pruritis - Constitutional Vitals: Temp Pulse Resp BP Pulse Ox 98.9 F 78 14 99/65 96 04/21/17 06:43 04/21/17 06:43 04/21/17 06:43 04/21/17 06:43 04/21/17 06:43 General appearance: Present: A&O X 3 Exam: General: Patient alert, awake, oriented 3, cachectic in appearance, sunken temporalis regions HEENT: Normocephalic, atraumatic, pupils equal reactive to light, nasal cavity patent and open septum median position, oral mucosa moist, neck supple trachea midline no palpable lymphadenopathy, no thyromegaly. No scleral icterus Chest: Symmetric bilateral correlating with respiratory effort, effort nonlabored. Ribs are prominent, barrel chest Cardiac: Regular rate and rhythm, positive S1 and S2. Radial pulses 2+ bilateral, posterior tibial and dorsal pedal pulses 2+ bilateral. Respiratory: Diminished inspiratory and expiratory breath sounds diffusely with rhonchi in the right lower lung base. Abdomen: Sunken abdomen, nontender to palpation, fullness in the epigastric and left upper quadrant Extremities: Symmetric bilateral, bilateral lower extremities without erythema or edema patient moving all 4 extremities spontaneously. Neurologic: No focal deficits appreciated on examination. Face symmetric, muscle strength symmetric bilateral upper and lower extremities. Results - Labs CBC & Chem 7: 04/20/17 03:27 04/21/17 05:54 Labs: Last Result Calcium 8.1 mg/dL (8.6-10.8) L 04/21/17 05:54 C-Reactive Protein 70 mg/L (Less than 5) H 04/18/17 04:13 Entire Visit Hgb 11.3 g/dL (12.9-16.9) L 04/20/17 03:27 Hct 33.3 % (37.5-50.1) L 04/20/17 03:27 PT 13.5 Seconds (9.4-12.1) H 04/19/17 16:23 Total Bilirubin 3.5 mg/dL (0.2-1.2) H 04/21/17 05:54 AST 175 Units/L (5-34) H 04/21/17 05:54 ALT 48 Units/L (0-55) 04/21/17 05:54 - ABG ABG results: PT/INR, D-dimer PT 13.5 Seconds (9.4-12.1) H 04/19/17 16:23 Consult Discharge Plan - Plan Referrals: NONE,PCP [Primary Care Provider] - <Breana Paiz - Last Filed: 04/21/17 16:42> Date of Encounter: 04/21/17 Time of Encounter: 15:00 - Time Spent With Patient Total time spent is greater than 50% in coordination of care (as documented) at patient's floor/unit and/or counseling patient: GI History of Present Illness - Data of Consult Requesting Physician: Willian Palma DO - Consult Narrative History of present illness: Mr. Cohen is a 51 year old male - Constitutional Vitals: Temp Pulse Resp BP Pulse Ox 98.9 F 71 14 132/87 95 04/21/17 11:24 04/21/17 11:24 04/21/17 11:24 04/21/17 11:24 04/21/17 11:24 Results - Labs CBC & Chem 7: 04/20/17 03:27 04/21/17 05:54 Labs: Last Result Calcium 8.1 mg/dL (8.6-10.8) L 04/21/17 05:54 C-Reactive Protein 70 mg/L (Less than 5) H 04/18/17 04:13 Entire Visit Hgb 11.3 g/dL (12.9-16.9) L 04/20/17 03:27 Hct 33.3 % (37.5-50.1) L 04/20/17 03:27 PT 13.5 Seconds (9.4-12.1) H 04/19/17 16:23 Total Bilirubin 3.5 mg/dL (0.2-1.2) H 04/21/17 05:54 AST 175 Units/L (5-34) H 04/21/17 05:54 ALT 48 Units/L (0-55) 04/21/17 05:54 - ABG ABG results: PT/INR, D-dimer PT 13.5 Seconds (9.4-12.1) H 04/19/17 16:23 - Impressions Impressions Abdomen Ultrasound 04/21/17 00:00 IMPRESSION: 1. No findings of biliary obstruction. 2. Partial visualization of the known primary malignancy arising from the pancreatic tail. 3. Incomplete evaluation of known hepatic metastatic disease. 4. Subtle liver surface nodularity and coarsening of echotexture suggests underlying fibrotic change, potentially a sequela of treatment. 5. Trace to small ascites. 6. Diffuse gallbladder wall thickening most likely related to liver disease, ascites, or a systemic process such as hypoproteinemia. D/ / Rene Salazar MD / Rene Salazar MD Interpreting Provider: Rene Salazar MD - Attending Attestation I examined this patient and my medical decision-making was reviewed with the Resident Physician. I agree with the documented findings, disposition and treatment plan as described except to the extent set forth below. Pt with metastatic pancreatic cancer with liver metastases. Elevated LFTs are due to intrahepatic metastasis and there is no CBD obstruction on the imaging. No indication for ERCP
[2017-04-21] MEDS ORDERED: Magnesium Sulfate 2 GM in D5% in Water 100 ML IVPB ONE (09:56)
[2017-04-21] MEDS: Aspirin Enteric Coated 81 MG Tablet PO SCH (10:12)
[2017-04-21] MEDS: cefTRIAXone 1,000 MG in Water for inj. (sterile) 10 ML IVP SCH (10:13)
[2017-04-21] MEDS ORDERED: Vancomycin 1,000 MG in D5% in Water 250 ML IVPB SCH ×2 (11:00→11:45)
[2017-04-21] MEDS: Vancomycin 1,000 MG in D5% in Water 250 ML IVPB SCH (13:03)
[2017-04-21] MEDS ORDERED: MOM Conc 10 ML UD.LIQ PO ONE (13:53)
[2017-04-21] MEDS: ALPRAZolam 0.5 MG TABLET PO PRN (14:36)
[2017-04-21] MEDS: *HR* OxyCODONE Immed Rel 5 MG TABLET PO PRN (16:18)
[2017-04-21] MEDS: *HR* Rivaroxaban 10 MG TABLET PO SCH (16:19)
--- NOTE | 2017-04-21 18:42 | Internal Med Progress Note ---
Date of Encounter: 04/21/17 Time of Encounter: 08:30 - Assessment and plan (1) UTI (urinary tract infection) Current Visit: Yes Status: Acute Assessment and plan: Urine culture with gram positive cocci. IV Vanc added today to cover any potential for MRSA. Anticipate further cx results tomorrow. Qualifiers: Urinary tract infection type: acute cystitis Hematuria presence: with hematuria Qualified Code(s): N30.01 - Acute cystitis with hematuria (2) Inferior pubic ramus fracture Current Visit: Yes Status: Acute Assessment and plan: Nonsurgical treatment. Has been accepted at [facility]. Anticipate d/c tomorrow. Qualifiers: Encounter type: subsequent encounter Fracture type: closed Laterality: right Fracture healing: with routine healing Qualified Code(s): S32.591D - Other specified fracture of right pubis, subsequent encounter for fracture with routine healing (3) Deep vein thrombosis of lower extremity Current Visit: Yes Status: Chronic Assessment and plan: DVT persists in LLE. Started on Xarelto. 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 (5) Leucocytosis Current Visit: Yes Status: Acute Assessment and plan: Slowly improving. Qualifiers: Leukocytosis type: other Qualified Code(s): D72.828 - Other elevated white blood cell count (6) Pancreatic adenocarcinoma Current Visit: No Status: Suspected Assessment and plan: Does not want further workup or treatment. (7) Tobacco abuse Current Visit: No Status: Chronic Assessment and plan: Cessation counselling. (8) Hyponatremia Current Visit: No Status: Acute Assessment and plan: Persists today. Will recheck in AM. (9) Anemia Current Visit: Yes Status: Chronic Assessment and plan: Supportive care. Qualifiers: Anemia type: other cause Other causes of anemia: chronic disease, neoplastic Qualified Code(s): D63.0 - Anemia in neoplastic disease (10) Liver metastases Current Visit: Yes Status: Chronic Assessment and plan: Causing intrahepatic obstruction. Supportive care. - Subjective Interval history: Mr. Cohen is currently admitted for acute R pubic rami fracture. He has been noted to have thrombocytopenia. He remains moderate to high risk due to potential for worsening clinical status. Mr Cohen feels OK. Appetite fair. No fever or chills. Has UTI. Pain is controlled currently - Constitutional Vitals: Temp Pulse Resp BP Pulse Ox 98.9 F 71 14 132/87 95 04/21/17 11:24 04/21/17 11:24 04/21/17 11:24 04/21/17 11:24 04/21/17 11:24 General appearance: Present: A&O X 3, underweight, answers questions appropriately - Head Head exam: Present: normocephalic - Eye Eye exam: Present: EOMI, conjuntiva pink - ENT ENT exam: Present: mucous membranes moist - Respiratory Respiratory exam: Present: decreased breath sounds, CTAB. Absent: rhonchi, wheezes - Cardiovascular Cardiovascular exam: Present: distant heart sounds, RRR. Absent: tachycardia - GI/Abdominal GI/Abdominal exam: Present: soft. Absent: tenderness - Extremities Exam Extremities exam: Present: warm. Absent: tenderness - Neurological Exam Neurological exam: Present: alert, oriented X3 - Skin Skin exam: Present: warm. Absent: rash Internal Medicine: Result - Labs CBC & Chem 7: 04/20/17 03:27 04/21/17 05:54 Labs: BMP 04/21/17 05:54 Sodium 129 L Potassium 4.0 Chloride 94 L Carbon Dioxide 25 BUN 7 L Creatinine 0.58 L Glucose 73 Calcium 8.1 L Liver Function 04/21/17 Range/Units 05:54 Total Bilirubin 3.5 H (0.2-1.2) mg/dL AST 175 H (5-34) Units/L ALT 48 (0-55) Units/L Alkaline Phosphatase 470 H (38-126) Units/L Albumin 1.8 L (3.5-5.0) g/dL - ABG Interpretation ABG results: PT/INR, D-dimer PT 13.5 Seconds (9.4-12.1) H 04/19/17 16:23 - Impressions Impressions Abdomen Ultrasound 04/21/17 00:00 IMPRESSION: 1. No findings of biliary obstruction. 2. Partial visualization of the known primary malignancy arising from the pancreatic tail. 3. Incomplete evaluation of known hepatic metastatic disease. 4. Subtle liver surface nodularity and coarsening of echotexture suggests underlying fibrotic change, potentially a sequela of treatment. 5. Trace to small ascites. 6. Diffuse gallbladder wall thickening most likely related to liver disease, ascites, or a systemic process such as hypoproteinemia. D/ / Rene Salazar MD / Rene Salazar MD Interpreting Provider: Rene Salazar MD - VTE Documentation of Mechanical Device: Intermittent pneumatic compression device Consult Discharge Plan - Plan Referrals: NONE,PCP [Primary Care Provider] -
[2017-04-22] MEDS: Vancomycin 1,000 MG in D5% in Water 250 ML IVPB SCH (00:01)
[2017-04-22] MEDS: *HR* HYDROmorphone (PF) 1 MG/ML SYRINGE IVP PRN ×2 (00:02→09:19)
[2017-04-22] MEDS: Methyl Salicylate/Menthol 28 GM TUBE TP PRN (00:02)
[2017-04-22] MEDS: ALPRAZolam 0.5 MG TABLET PO PRN (01:59)
[2017-04-22] MEDS: *HR* OxyCODONE Immed Rel 5 MG TABLET PO PRN (04:04)
[2017-04-22 05:50] LABS: Hemoglobin 10.5 g/dL (12.9-16.9)
[2017-04-22 05:52] LABS: Hematocrit 29.9 % (37.5-50.1); Immature Platelets 8.9 % (1.1-6.1); Mean Corpuscular HGB Conc 35.1 g/dL (31.6-35.5); Mean Platelet Volume 11.1 fL (9.4-12.4); Red Blood Count 3.18 M/mcL (4.19-5.50); Red Cell Distribution Width 15.2 % (11.5-14.5)
[2017-04-22 06:00] LABS: Alanine Aminotransferase 36 Units/L (0-55); Albumin/Globulin Ratio 0.5 (1.1-2.2); Alkaline Phosphatase 429 Units/L (38-126); Aspartate Amino Transferase 107 Units/L (5-34); BUN/Creatinine Ratio 17 (6-26); Bilirubin,Total 3.5 mg/dL (0.2-1.2); Blood Urea Nitrogen 10 mg/dL (8-26); Calcium 7.9 mg/dL (8.6-10.8); Carbon Dioxide 28 mEq/L (19-29); Chloride 94 mEq/L (98-109); Globulin 3.3 g/dL (2.4-3.5); Glucose 102 mg/dL (70-99); Magnesium 1.5 mg/dL (1.6-2.6); Osmolality,Calculated 269 (280-300); Potassium 3.7 mEq/L (3.5-4.5); Sodium 130 mEq/L (136-145); Total Protein 4.9 g/dL (6.0-8.3); eGFR For African Americans > 60 (> 60); eGFR For Non-African Americans > 60 (> 60)
[2017-04-22 06:04] LABS: Albumin 1.6 g/dL (3.5-5.0)
--- NOTE | 2017-04-22 08:35 | Discharge Summary ---
Date of Encounter: 04/22/17 Time of Encounter: 09:00 - Discharge Diagnosis (1) Inferior pubic ramus fracture Priority: Primary Status: Acute Qualifiers: Encounter type: subsequent encounter Fracture type: closed Laterality: right Fracture healing: with routine healing Qualified Code(s): S32.591D - Other specified fracture of right pubis, subsequent encounter for fracture with routine healing (2) UTI (urinary tract infection) Priority: Secondary Status: Acute Qualifiers: Urinary tract infection type: acute cystitis Hematuria presence: with hematuria Qualified Code(s): N30.01 - Acute cystitis with hematuria (3) Deep vein thrombosis of lower extremity Priority: Secondary Status: Chronic Qualifiers: Affected thrombotic vein of extremity: iliac Chronicity: chronic Laterality: left Qualified Code(s): I82.522 - Chronic embolism and thrombosis of left iliac vein (4) Leucocytosis Priority: Secondary Status: Acute Qualifiers: Leukocytosis type: other Qualified Code(s): D72.828 - Other elevated white blood cell count (5) Pancreatic adenocarcinoma Priority: Secondary Status: Suspected (6) Tobacco abuse Priority: Secondary Status: Chronic (7) Hyponatremia Priority: Secondary Status: Chronic (8) Anemia Priority: Secondary Status: Chronic Qualifiers: Anemia type: other cause Other causes of anemia: chronic disease, neoplastic Qualified Code(s): 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 - Anemia in neoplastic disease (9) Liver metastases Priority: Secondary Status: Chronic (10) Pseudothrombocytopenia Priority: Secondary Status: Chronic - Discharge Medications Prescriptions: HYDROmorphone [Dilaudid] 2 mg PO Q4HR PRN #10 tablet PRN Reason: Severe Pain OxyCODONE ER (12 HR) [OxyCONTIN] 20 mg PO Q12HR #5 tab.er.12h ALPRAZolam [Xanax 0.5 MG Tablet] 0.5 mg PO BID PRN #6 tablet PRN Reason: Anxiety Home Medications: Aspirin Enteric Coated [Aspirin EC] 81 mg PO DAILY 03/16/17 [History] Lansoprazole [Prevacid] 30 mg PO DAILY 03/16/17 [History] Ranitidine HCl [Heartburn Relief] 150 mg PO HS 03/16/17 [History] ALPRAZolam [Xanax 0.5 MG Tablet] 0.5 mg PO BID PRN #6 tablet 04/22/17 [Rx] Ciprofloxacin [Cipro] 500 mg PO BID tablet 04/22/17 [Rx] DiphenhydraMINE [Benadryl] 25 mg PO Q6HR PRN capsule 04/22/17 [Rx] HYDROmorphone [Dilaudid] 2 mg PO Q4HR PRN #10 tablet 04/22/17 [Rx] Methyl Salicylate/Menthol [Bengay] 1 appl TP BID PRN tube 04/22/17 [Rx] OxyCODONE ER (12 HR) [OxyCONTIN] 20 mg PO Q12HR #5 tab.er.12h 04/22/17 [Rx] Rivaroxaban [Xarelto] 20 mg PO 1700 tablet 04/22/17 [Rx] Allergies/Adverse Reactions: 3 Allergy/AdvReac Type Severity Reaction Status Date / Time Iodinated Contrast- Oral and Allergy Swelling Verified 03/16/17 14:42 IV Dye of Lip/Tongue/Throat morphine Allergy Nausea Verified 03/16/17 14:42 Procedures/tests Complete & Pending: Procedures Performed prior 72 hours Category Date Time Status US abdomen limited [US] Routine Exams 04/21/17 Completed Date of admission: 04/19/17 13:56 Primary care physician: PCP NONE Consults: 04/21/17 08:27 Consult to Gastroenterology [CONS] Routine Consulting Provider: Gastroenterology Elayne Reason for Consult: Biliary obstruction, pancreatic mass Time Notified: 08:20 Call Completed: Yes Discharging clinician: Willian Palma Anticipated date of discharge: 04/22/17 - Patient Status Disposition: Transfer SNF Functional capacity at discharge: uses cane/walker Overall status at discharge: patient is progressing back to baseline - Discharge Instructions - Diet and Activity Activity: ambulate only with your walker, as per physical therapy, increase activity as tolerated Diet: regular diet Hospital course: Mr. Cohen is a 51 year old male with hx of L LE DVT and presumptive pancreatic cancer with liver mets presented to hospital after mechanical fall. He was found to have pubic ramus fracture and was placed in observation. Mr Cohen was initially placed in observation. He was started on IV pain meds and was using them around the clock. 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 He was evaluated by heme onc and ultimately started on PO Xarelto. Repeat duplex was continued positive for DVT in L leg. It appears his platelets are clumping in EDTA and sodium citrate therefore it is felt to be pseudothrombocytopenia. He continued to require frequent IV pain meds. There was concern that he was at risk for biliary obstruction from tumor. He was seen by GI and further evaluation revealed that the biliary obstruction is due to hepatic mets and he did not need stenting at this time. He had significant leukocytosis and UTI was noted. He will be discharged on PO abx. On 04/22 he was afebrile with stable vitals. He still requires a lot of pain medication so was started on long acting meds at discharge. He was discharged to SNF. - Time Spent with Patient Total time spent providing and/or coordinating discharge services: 42min - Constitutional Vitals: Temp Pulse Resp BP Pulse Ox 98.5 F 111 17 104/69 94 04/22/17 07:02 04/22/17 07:02 04/22/17 07:02 04/22/17 07:02 04/22/17 07:02 General appearance: Present: A&O X 3, underweight, answers questions appropriately - Head Head exam: Present: normocephalic - Eye Eye exam: Present: conjuntiva pink - ENT ENT exam: Present: mucous membranes moist - Respiratory Respiratory exam: Present: CTAB. Absent: rhonchi, wheezes - Cardiovascular Cardiovascular exam: Present: RRR. Absent: tachycardia - GI/Abdominal GI/Abdominal exam: Present: soft. Absent: tenderness - Extremities Exam Extremities exam: Present: tenderness, warm - Neurological Exam Neurological exam: Present: alert, oriented X3 - Skin Skin exam: Present: warm. Absent: rash - VTE Documentation of Mechanical Device: Intermittent pneumatic compression device
--- NOTE | 2017-04-22 08:41 | Physician Discharge Referral ---
ExtendedCare Referral Info Transfer To: [facility] Provider in Charge after Transfer: PCP Institutional Level of Care: Skilled - Diagnosis (1) Inferior pubic ramus fracture Priority: Primary Status: Acute (2) UTI (urinary tract infection) Priority: Secondary Status: Acute (3) Deep vein thrombosis of lower extremity Priority: Secondary Status: Chronic (4) Leucocytosis Priority: Secondary Status: Acute (5) Pancreatic adenocarcinoma Priority: Secondary Status: Suspected (6) Tobacco abuse Priority: Secondary Status: Chronic (7) Hyponatremia Priority: Secondary Status: Acute (8) Anemia Priority: Secondary Status: Chronic (9) Liver metastases Priority: Secondary Status: Chronic (10) Pseudothrombocytopenia Priority: Secondary Status: Chronic Expected Duration of Placement: Less than 30 days Prognosis: Fair Aware of Diagnosis: Patient Aware of Prognosis: Patient - Transfer Medications Prescriptions: OxyCODONE Immed Rel [Roxicodone 5 MG] 5 mg PO Q6HR PRN #10 tablet PRN Reason: Severe Pain ALPRAZolam [Xanax 0.5 MG Tablet] 0.5 mg PO BID PRN #6 tablet PRN Reason: Anxiety Home Medications: Aspirin Enteric Coated [Aspirin EC] 81 mg PO DAILY 03/16/17 [History] Lansoprazole [Prevacid] 30 mg PO DAILY 03/16/17 [History] Ranitidine HCl [Heartburn Relief] 150 mg PO HS 03/16/17 [History] ALPRAZolam [Xanax 0.5 MG Tablet] 0.5 mg PO BID PRN #6 tablet 04/22/17 [Rx] Ciprofloxacin [Cipro] 500 mg PO BID tablet 04/22/17 [Rx] DiphenhydraMINE [Benadryl] 25 mg PO Q6HR PRN capsule 04/22/17 [Rx] Methyl Salicylate/Menthol [Bengay] 1 appl TP BID PRN tube 04/22/17 [Rx] OxyCODONE Immed Rel [Roxicodone 5 MG] 5 mg PO Q6HR PRN #10 tablet 04/22/17 [Rx] Rivaroxaban [Xarelto] 20 mg PO 1700 tablet 04/22/17 [Rx] Allergies/Adverse Reactions: 3 Allergy/AdvReac Type Severity Reaction Status Date / Time Iodinated Contrast- Oral and Allergy Swelling Verified 03/16/17 14:42 IV Dye of Lip/Tongue/Throat morphine Allergy Nausea Verified 03/16/17 14:42 - Respiratory Orders Oxygen / L per min (Keep oxygen saturation greater than 92%) Smoking Cessation: Smoking cessation has been advised. For more information, call the [place] Tobacco Quit Line at 0-951-TTTO-NOW. - Lab Orders Lab Orders: 2 Step Mantoux Test per State regulation, CBC, [place] 17 - Ancillary Orders May use pressure relief devices daily prn, May consult with Dentist, Cutting Machine Offbearer, Rn Testing PRN - Advance Directives Living Will: No Power of Cutter Out: No Code Status: DNR-Comfort Care - History and Physical History/Physical reviewed & approved w/add comments: No significant changes - Mobility Orders Ambulate - Rehabiliation Orders Rehab Potential: Fair Rehab Orders: Evaluation for Physical Therapy, Evaluation for Speech Therapy - Treatments Skin tear care topically daily PRN per policy, May check for fecal impaction rectally daily PRN, Fleet enema rectally every other day PRN cleansing purposes - Diet Orders Regular CERTIFICATION: I certify that the transfer of the above named patient to an Extended Care Facility is necessary for the continuing treatment of the diagnosis listed. The above information is true and accurate reflection of patient's current condition. Confidential - Redisclosure prohibited without a patient's written consent.
[2017-04-22] MEDS ORDERED: *HR* HYDROmorphone 2 MG TABLET PO PRN (08:59)
[2017-04-22] MEDS ORDERED: *HR* OxyCODONE ER (12 HR) 20 MG TABLET PO SCH (09:00)
[2017-04-22] MEDS ORDERED: Magnesium Sulfate 2 GM in D5% in Water 100 ML IVPB ONE (09:12)
[2017-04-22] MEDS: Aspirin Enteric Coated 81 MG Tablet PO SCH (09:19)
[2017-04-22 10:46] VITALS: BP 100/71
[2017-04-22] MEDS ORDERED: FLUARIX QUAD 2017-18 36MOS UP/PF 0.5 ML SYRINGE IM ONE (11:35)
[2017-04-22] MEDS ORDERED: Aminoglycoside Consult 1 EACH MC ONE (13:45)
== END 2017-04-22 13:46 | DRG 341 ==
LOC: EMEROO 19:33 → 3NENU 19:33 → SUATTDRO 20:55 → 3NENU 22:10 → 3ANU 04-19 10:55
PROVIDERS: ADMIT Internal Medicine; ATTEND Internal Medicine

== ENCOUNTER 2017-04-30 16:04 | Observation (INO) ==
--- NOTE | 2017-04-30 16:36 | Emergency Department Note ---
Disposition Clinical Impression: Pancreatic cancer, Deep vein thrombosis of lower extremity Superficial thrombophlebitis Qualifiers: Superficial thrombophlebitis-Involved body area: lower extremity Laterality: left Qualified Code(s): I80.02 - Phlebitis and thrombophlebitis of superficial vessels of left lower extremity Inferior pubic ramus fracture Qualifiers: Encounter type: subsequent encounter Fracture type: closed Laterality: right Fracture healing: with routine healing Qualified Code(s): S32.591D - Other specified fracture of right pubis, subsequent encounter for fracture with routine healing Disposition: Admitted As Inpatient Condition: Fair Referrals: NONE,PCP [Primary Care Provider] - Forms: ED Satisfaction Letter General Adult HPI - General Chief complaint: ED Extremity Problem,Nontraumatic Stated complaint: + LLE DVT Time Seen by Provider: 04/30/17 16:23 Source: patient Nursing Notes Reviewed: Yes Vital Signs Reviewed: Yes - History of Present Illness HPI Narrative: Mr. Cohen, 51-year-old male, presents to the emergency department from the cardiac ultrasound lab with diagnosis of DVT. Patient is unsure which leg. States he has a history of prior DVT in both lower extremities. No history of PE. Patient was previously on Lovenox however, he fell one week ago during his right hip. It was nonsurgical and he was laced into inpatient rehabilitation. His left lower extremity venous swelling several days ago this the repeat DVT ultrasound. He is unsure if he is on any anticoagulation at this time. No history of cancer. No other past medical history reported by the patient. Unknown current medications as reported by the patient. Pain Scale: 9 - Related Data Home Medications Medication Instructions Recorded Confirmed Ranitidine HCl [Heartburn Relief] 150 mg PO QPM 03/16/17 04/30/17 HYDROmorphone [Dilaudid] 4 mg PO Q4H PRN 04/30/17 04/30/17 Pantoprazole Sodium 40 mg PO QAM 04/30/17 04/30/17 Rivaroxaban [Xarelto] 20 mg PO QAM 04/30/17 04/30/17 Previous Rx's Medication Instructions Recorded ALPRAZolam [Xanax 0.5 MG Tablet] 0.5 mg PO BID PRN #6 tablet 04/22/17 DiphenhydraMINE [Benadryl] 25 mg PO Q6HR PRN capsule 04/22/17 Methyl Salicylate/Menthol [Bengay] 1 appl TP BID PRN tube 04/22/17 OxyCODONE ER (12 HR) [OxyCONTIN] 20 mg PO Q12HR #5 tab.er.12h 04/22/17 Allergies Allergy/AdvReac Type Severity Reaction Status Date / Time Iodinated Contrast- Oral and Allergy Swelling Verified 04/30/17 16:17 IV Dye of Lip/Tongue/Throat morphine Allergy Nausea Verified 04/30/17 16:17 All systems ED: reviewed and negative except as stated. Review of Systems: As Per HPI Past Medical History - Past Medical History Medical history: Reports: cancer, COPD, DVT Psychiatric history: Reports: anxiety, depression - Social History Smoking Status: Current every day smoker Smokeless Tobacco Status: No Alcohol use: Reports: occasionally Drug use: Reports: none Physical Exam - General General appearance: alert, in no apparent distress Course Course Narrative: Patient presents from cardiology venous Doppler outpatient clinic with new diagnosis of left lower extremity DVT. He does have a chronic DVT in that extremity however there are 2 additional nodes found on the study. Patient was previously on Lovenox however he discontinued approximate one week ago after a fall resulting in an acetabular fracture. Patient also has a history of pancreatic cancer. He refuses treatment or care per oncology note. He has an elevated white count likely secondary to hyperbilirubinemia. We will begin first dose Lovenox and admit. Vital Signs Temperature 98.1 F 04/30/17 16:15 Pulse Rate 77 04/30/17 16:15 Respiratory Rate 16 04/30/17 16:15 Blood Pressure 130/88 04/30/17 16:15 O2 Sat by Pulse Oximetry 98 04/30/17 16:15 Temperature 98.1 F 04/30/17 16:15 Pulse Rate 77 04/30/17 16:15 Respiratory Rate 16 04/30/17 16:15 Blood Pressure 130/88 04/30/17 16:15 O2 Sat by Pulse Oximetry 98 04/30/17 16:15 Oxygen Delivery Oxygen Delivery Room Air Medical Decision Making - MDM Narrative Medical decision making narrative: I examined this patient and my medical decision-making was reviewed with the Resident Physician. I agree with the documented findings, disposition and treatment plan as described except to the extent set forth below. Patient seen and evaluated by Dr. Street myself, I agree with his evaluation and management plan, supervise care the patient's stay. Patient has a history of DVTs in the LEFT lower extremity. Was on Lovenox then had a fall and had a pubic ramus fracture so they stopped the Lovenox. He developed increasing pain in the LEFT leg. They did an imaging study today is now patient and he has multiple new DVTs in the LEFT lower extremity. We are going to start him back on Lovenox or going to get basic labs and we will bring him into the hospital. He is in agreement with this plan. 1840 hrs., patient has an elevated white count most likely secondary to his cancer that he has. He wants to be admitted which we will do. We spoke hospital started agreement to the hospital. Impression is pink-red cancer elevated white count DVT acute on chronic. Start him back on Lovenox. An admit. - Lab Data Result diagrams: 04/30/17 17:27 04/30/17 17:27 Lab Results 04/30/17 04/30/17 04/30/17 Range/Units 17:27 17:27 17:27 WBC 22.9 H (4.3-11.1) K/mcL RBC 3.11 L (4.19-5.50) M/mcL Hgb 10.3 L (12.9-16.9) g/dL Hct 29.9 L (37.5-50.1) % MCV 96.1 (83.0-100.0) fL MCH 33.1 (28.0-33.3) pg MCHC 34.4 (31.6-35.5) g/dL RDW 16.6 H (11.5-14.5) % Plt Count 101 L (140-400) K/mcL MPV 10.5 (9.4-12.4) fL Immature Gran % 0.5 (0-4) % Seg Neutrophils % 79.3 % Lymphocytes % 9.8 % Monocytes % 9.7 % Eosinophils % 0.3 % Basophils % 0.4 % Neutrophils # 18.2 H (1.6-8.9) K/mcL Lymphocytes # 2.3 (0.6-4.6) K/mcL Monocytes # 2.2 H (0.0-1.3) K/mcL Eosinophils # 0.1 (0.0-0.6) K/mcL Basophils # 0.1 (0.0-0.2) K/mcL PT 30.4 H (9.4-12.1) Seconds INR 2.8 APTT 29.9 (26.0-36.0) Seconds Sodium 127 L (136-145) mEq/L Potassium 5.0 H (3.5-4.5) mEq/L Chloride 92 L (98-109) mEq/L Carbon Dioxide 27 (19-29) mEq/L BUN 11 (8-26) mg/dL Creatinine 0.70 L (0.72-1.25) mg/dL Est GFR ( Amer) > 60 (> 60) Est GFR (Non-Af Amer) > 60 (> 60) BUN/Creatinine Ratio 16 (6-26) Glucose 113 H (70-99) mg/dL Calculated Osmolality 264 L (280-300) Calcium 8.6 (8.6-10.8) mg/dL Total Bilirubin 5.4 H (0.2-1.2) mg/dL AST 166 H (5-34) Units/L ALT 37 (0-55) Units/L Alkaline Phosphatase 664 H (38-126) Units/L Serum Total Protein 5.8 L (6.0-8.3) g/dL Albumin 2.0 L (3.5-5.0) g/dL Globulin 3.8 H (2.4-3.5) g/dL Albumin/Globulin Ratio 0.5 L (1.1-2.2)
[2017-04-30] MEDS ORDERED: *HR* OxyCODONE Immed Rel 5 MG TABLET PO ONE (17:16)
[2017-04-30] MEDS: *HR* Enoxaparin 60 MG/0.6 ML SYRINGE SQ SCH (17:22)
[2017-04-30 17:34] LABS: Basophils # 0.1 K/mcL (0.0-0.2); Basophils % 0.4 %; Eosinophils # 0.1 K/mcL (0.0-0.6); Eosinophils % 0.3 %; Hematocrit 29.9 % (37.5-50.1); Hemoglobin 10.3 g/dL (12.9-16.9); Immature Granulocytes % 0.5 % (0-4); Lymphocytes # 2.3 K/mcL (0.6-4.6); Lymphocytes % 9.8 %; Mean Corpuscular HGB Conc 34.4 g/dL (31.6-35.5); Mean Corpuscular Hemoglobin 33.1 pg (28.0-33.3); Mean Corpuscular Volume 96.1 fL (83.0-100.0); Mean Platelet Volume 10.5 fL (9.4-12.4); Monocytes # 2.2 K/mcL (0.0-1.3); Monocytes % 9.7 %; Neutrophils # 18.2 K/mcL (1.6-8.9); Platelet Count 101 K/mcL (140-400); Red Blood Count 3.11 M/mcL (4.19-5.50); Red Cell Distribution Width 16.6 % (11.5-14.5); Segmented Neutrophils % 79.3 %
[2017-04-30 17:42] LABS: INR 2.8; Prothrombin Time 30.4 Seconds (9.4-12.1)
[2017-04-30 17:45] LABS: Activated Partial Thrombo Time 29.9 Seconds (26.0-36.0)
[2017-04-30 17:47] LABS: Alanine Aminotransferase 37 Units/L (0-55); Albumin/Globulin Ratio 0.5 (1.1-2.2); Alkaline Phosphatase 664 Units/L (38-126); Aspartate Amino Transferase 166 Units/L (5-34); BUN/Creatinine Ratio 16 (6-26); Bilirubin,Total 5.4 mg/dL (0.2-1.2); Blood Urea Nitrogen 11 mg/dL (8-26); Calcium 8.6 mg/dL (8.6-10.8); Carbon Dioxide 27 mEq/L (19-29); Chloride 92 mEq/L (98-109); Globulin 3.8 g/dL (2.4-3.5); Glucose 113 mg/dL (70-99); Osmolality,Calculated 264 (280-300); Sodium 127 mEq/L (136-145); Total Protein 5.8 g/dL (6.0-8.3); eGFR For African Americans > 60 (> 60); eGFR For Non-African Americans > 60 (> 60)
--- NOTE | 2017-04-30 18:46 | Emergency Department Note ---
Disposition Clinical Impression: Pancreatic cancer, Deep vein thrombosis of lower extremity Superficial thrombophlebitis Qualifiers: Superficial thrombophlebitis-Involved body area: lower extremity Laterality: left Qualified Code(s): I80.02 - Phlebitis and thrombophlebitis of superficial vessels of left lower extremity Inferior pubic ramus fracture Qualifiers: Encounter type: subsequent encounter Fracture type: closed Laterality: right Fracture healing: with routine healing Qualified Code(s): S32.591D - Other specified fracture of right pubis, subsequent encounter for fracture with routine healing Disposition: Admitted As Inpatient Condition: Fair Referrals: NONE,PCP [Primary Care Provider] - Forms: ED Satisfaction Letter General Adult HPI - General Chief complaint: ED Extremity Problem,Nontraumatic Stated complaint: + LLE DVT Time Seen by Provider: 04/30/17 16:23 Source: patient - History of Present Illness Pain Scale: 9 - Related Data Home Medications Medication Instructions Recorded Confirmed Ranitidine HCl [Heartburn Relief] 150 mg PO QPM 03/16/17 04/30/17 HYDROmorphone [Dilaudid] 4 mg PO Q4H PRN 04/30/17 04/30/17 Pantoprazole Sodium 40 mg PO QAM 04/30/17 04/30/17 Rivaroxaban [Xarelto] 20 mg PO QAM 04/30/17 04/30/17 Previous Rx's Medication Instructions Recorded ALPRAZolam [Xanax 0.5 MG Tablet] 0.5 mg PO BID PRN #6 tablet 04/22/17 DiphenhydraMINE [Benadryl] 25 mg PO Q6HR PRN capsule 04/22/17 Methyl Salicylate/Menthol [Bengay] 1 appl TP BID PRN tube 04/22/17 OxyCODONE ER (12 HR) [OxyCONTIN] 20 mg PO Q12HR #5 tab.er.12h 04/22/17 Allergies Allergy/AdvReac Type Severity Reaction Status Date / Time Iodinated Contrast- Oral and Allergy Swelling Verified 04/30/17 16:17 IV Dye of Lip/Tongue/Throat morphine Allergy Nausea Verified 04/30/17 16:17 Past Medical History - Past Medical History Medical history: Reports: cancer, COPD, DVT Psychiatric history: Reports: anxiety, depression - Social History Smoking Status: Current every day smoker Smokeless Tobacco Status: No Alcohol use: Reports: occasionally Drug use: Reports: none Physical Exam Vital Signs Reviewed General: Patient is alert, oriented, and in no acute distress. He appears cachectic and older than stated age. HEENT: No facial asymmetry. Head is normocephalic and atraumatic. Some moist. Trachea midline. Cardiovascular: Heart regular rate and rhythm without clicks, rubs, gallops, or murmurs. No JVD. PMI nondisplaced. Bilateral posterior tibial pulses 2/4 equal. Left lower extremity has 1+ pitting edema. Right lower extremity has trace pitting edema. Respiratory: Symmetric chest rise with good respiratory effort. Bilateral breath sounds are clear without wheezing, crackles, or rhonchi. Abdomen: Bowel sounds present normoactive x-4 quadrants. Abdomen is soft, nondistended, and nontender. No organomegaly noted. Musculoskeletal: Spontaneously moving all extremities. Psych: Patient's affect is appropriate for situation. - General General appearance: alert, in no apparent distress Course Vital Signs Temperature 98.1 F 04/30/17 16:15 Pulse Rate 77 04/30/17 16:15 Respiratory Rate 16 04/30/17 16:15 Blood Pressure 130/88 04/30/17 16:15 O2 Sat by Pulse Oximetry 98 04/30/17 16:15 Temperature 98.1 F 04/30/17 16:15 Pulse Rate 77 04/30/17 16:15 Respiratory Rate 16 04/30/17 16:15 Blood Pressure 130/88 04/30/17 16:15 O2 Sat by Pulse Oximetry 98 04/30/17 16:15 Oxygen Delivery Oxygen Delivery Room Air Medical Decision Making - Lab Data Result diagrams: 04/30/17 17:27 04/30/17 17:27 Lab Results 04/30/17 04/30/17 04/30/17 Range/Units 17:27 17:27 17:27 WBC 22.9 H (4.3-11.1) K/mcL RBC 3.11 L (4.19-5.50) M/mcL Hgb 10.3 L (12.9-16.9) g/dL Hct 29.9 L (37.5-50.1) % MCV 96.1 (83.0-100.0) fL MCH 33.1 (28.0-33.3) pg MCHC 34.4 (31.6-35.5) g/dL RDW 16.6 H (11.5-14.5) % Plt Count 101 L (140-400) K/mcL MPV 10.5 (9.4-12.4) fL Immature Gran % 0.5 (0-4) % Seg Neutrophils % 79.3 % Lymphocytes % 9.8 % Monocytes % 9.7 % Eosinophils % 0.3 % Basophils % 0.4 % Neutrophils # 18.2 H (1.6-8.9) K/mcL Lymphocytes # 2.3 (0.6-4.6) K/mcL Monocytes # 2.2 H (0.0-1.3) K/mcL Eosinophils # 0.1 (0.0-0.6) K/mcL Basophils # 0.1 (0.0-0.2) K/mcL PT 30.4 H (9.4-12.1) Seconds INR 2.8 APTT 29.9 (26.0-36.0) Seconds Sodium 127 L (136-145) mEq/L Potassium 5.0 H (3.5-4.5) mEq/L Chloride 92 L (98-109) mEq/L Carbon Dioxide 27 (19-29) mEq/L BUN 11 (8-26) mg/dL Creatinine 0.70 L (0.72-1.25) mg/dL Est GFR ( Amer) > 60 (> 60) Est GFR (Non-Af Amer) > 60 (> 60) BUN/Creatinine Ratio 16 (6-26) Glucose 113 H (70-99) mg/dL Calculated Osmolality 264 L (280-300) Calcium 8.6 (8.6-10.8) mg/dL Total Bilirubin 5.4 H (0.2-1.2) mg/dL AST 166 H (5-34) Units/L ALT 37 (0-55) Units/L Alkaline Phosphatase 664 H (38-126) Units/L Serum Total Protein 5.8 L (6.0-8.3) g/dL Albumin 2.0 L (3.5-5.0) g/dL Globulin 3.8 H (2.4-3.5) g/dL Albumin/Globulin Ratio 0.5 L (1.1-2.2)
[2017-04-30] MEDS ORDERED: *HR* HYDROmorphone (PF) 1 MG/ML SYRINGE IVP ONE (23:16)
[2017-04-30] MEDS ORDERED: ALPRAZolam 0.5 MG TABLET PO PRN (23:39)
[2017-04-30] MEDS ORDERED: *HR* HYDROmorphone 2 MG/ML SYRINGE IVP PRN (23:40)
[2017-04-30] MEDS ORDERED: Ondansetron 4 MG/2 ML VIAL IVP PRN (23:40)
[2017-04-30] MEDS ORDERED: D5% in 0.9% NACL 1,000 ML IVC SCH (23:45)
--- NOTE | 2017-04-30 23:45 | Internal Med History&Physical ---
Date of Encounter: 04/30/17 Time of Encounter: 23:42 Assessment and Plan (1) Hyperkalemia Current visit: Yes Status: Acute Hydrate and repeat potassium. (2) Hyponatremia Current visit: No Status: Chronic hypovolemic hyponatremia versus SIADH related to cancer. He has baseline mild hyponatremia. Hydrate And repeat sodium level. (3) Deep vein thrombosis of lower extremity Current visit: Yes Status: Chronic Patient has new proximal DVT involving the left iliac and femoral vein. He has been on Xarelto. Patient has malignancy and therefore it is preferable to be on Lovenox especially that he had an acute DVT despite being on Xarelto. We will start the patient on Lovenox 1 mg per KG twice-daily. Social work consult to see if this is possible to be done as an outpatient. Patient is not willing to have any further investigations for suspected pancreatic cancer. He has not had any biopsy at. Oncology consult for guidance of postdischarge anticoagulation regimen. Qualifiers: Qualified Code(s): I82.4Z2 - Acute embolism and thrombosis of unspecified deep veins of left distal lower extremity (4) Pancreatic mass Current visit: No Status: Acute Patient still refuses biopsy. W Le is 5.4. This is increasing from previous. Likely related to biliary obstruction from pancreatic cancer. Alkaline phosphatase is also significantly elevated. Will fractionate bilirubin Internal Medicine - H&P: HPI Chief complaint: left leg swelling History of present illness: Mr. Cohen is a 51 year old male patients with recent suspicion of metastatic pancreatic cancer on abdominal imaging (but has not performed biopsy yet) on anticoagulation for recent lower extremity DVT led been in a rehab facility after he had sustained left pelvic fracture presents to the emergency room today after an outpatient Doppler study showed evidence of proximal left DVT involving the left iliac common and superficial femoral vein. Patient had Doppler performed after he started noticing swelling and pain in the left lower extremity. 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 He denies any sudden onset chest pain or shortness of breath. Past Med Surg Social Fam HX - Past Medical History Medical history: cancer, COPD, DVT Psychiatric history: anxiety, depression - Past Surgical History Surgical History: no surgical history - Social History Smoking Status: Current every day smoker Packs per day: 1-2 PPD Smokeless Tobacco Status: No Alcohol use: occasionally Drug use: none - Family History Father Adopted: No Family Member Ethnicity: Non- Living Status: Hx Family Cardiac Disorders: No Hx Family Respiratory Disorders: No Hx Family Cancer: Yes (skin) Hx Family GI Disorders: Yes (ulcers) Hx Family Endocrine Disorder: No Hx Family Neuromuscular Disorders: No Hx Family Neurologic Disorders: No Hx Family HEENT Disorders: No Hx Family Autoimmune Disorders: No Mother Adopted: No Family Member Ethnicity: Non- Living Status: Age at : 39 Hx Family Cardiac Disorders: No Hx Family Respiratory Disorders: No Hx Family Cancer: Yes (colon cancer) Hx Family GI Disorders: No Hx Family Endocrine Disorder: No Hx Family Neuromuscular Disorders: No Hx Family Neurologic Disorders: No Hx Family HEENT Disorders: No Hx Family Autoimmune Disorders: No Internal Medicine - H&P: Meds Ranitidine HCl [Heartburn Relief] 150 mg PO QPM 03/16/17 [History] ALPRAZolam [Xanax 0.5 MG Tablet] 0.5 mg PO BID PRN #6 tablet 04/22/17 [Rx] DiphenhydraMINE [Benadryl] 25 mg PO Q6HR PRN capsule 04/22/17 [Rx] Methyl Salicylate/Menthol [Bengay] 1 appl TP BID PRN tube 04/22/17 [Rx] OxyCODONE ER (12 HR) [OxyCONTIN] 20 mg PO Q12HR #5 tab.er.12h 04/22/17 [Rx] HYDROmorphone [Dilaudid] 4 mg PO Q4H PRN 04/30/17 [History] Pantoprazole Sodium 40 mg PO QAM 04/30/17 [History] Rivaroxaban [Xarelto] 20 mg PO QAM 04/30/17 [History] 3 Allergy/AdvReac Type Severity Reaction Status Date / Time Iodinated Contrast- Oral and Allergy Swelling Verified 04/30/17 16:17 IV Dye of Lip/Tongue/Throat morphine Allergy Nausea Verified 04/30/17 16:17 All Systems PM: A 10-system review of systems was performed and is negative for pertinent findings except as documented above in the HPI. Review of systems: 10 point review of systems is negative except for HPI - Constitutional Vitals: Temp Pulse Resp BP Pulse Ox 98.0 F 115 18 112/78 94 04/30/17 23:08 04/30/17 23:08 04/30/17 23:08 04/30/17 23:08 04/30/17 23:08 Exam: General: Patient is A&O X3 Cardiac: normal S1, S2, no additional sounds or murmurs Chest: Clear to auscultation bilaterally Abdomen: soft, nontender, non distended, normal BS. Neuro: No focal deficits Lower extremity: increased girth of left leg compared to right Internal Med - H&P Results - Labs CBC & Chem 7: 04/30/17 17:27 04/30/17 17:27
[2017-04-30] MEDS ORDERED: 0.9 % Sodium Chloride 1,000 ML IVC ONE (23:49)
[2017-05-01] MEDS ORDERED: Pantoprazole 80 MG in 0.9 % Sodium Chloride 250 ML IVC SCH (04:30)
[2017-05-01 04:44] LABS: Basophils # 0.1 K/mcL (0.0-0.2); Basophils % 0.4 %; Eosinophils # 0.1 K/mcL (0.0-0.6); Eosinophils % 0.3 %; Hematocrit 29.9 % (37.5-50.1); Hemoglobin 10.3 g/dL (12.9-16.9); Immature Granulocytes % 0.6 % (0-4); Lymphocytes # 1.9 K/mcL (0.6-4.6); Lymphocytes % 10.2 %; Mean Corpuscular HGB Conc 34.4 g/dL (31.6-35.5); Mean Corpuscular Hemoglobin 32.9 pg (28.0-33.3); Mean Corpuscular Volume 95.5 fL (83.0-100.0); Mean Platelet Volume 10.6 fL (9.4-12.4); Monocytes # 2.1 K/mcL (0.0-1.3); Monocytes % 10.9 %; Neutrophils # 14.6 K/mcL (1.6-8.9); Platelet Count 118 K/mcL (140-400); Red Blood Count 3.13 M/mcL (4.19-5.50); Red Cell Distribution Width 16.6 % (11.5-14.5); Segmented Neutrophils % 77.6 %
[2017-05-01 05:02] LABS: Alanine Aminotransferase 34 Units/L (0-55); Albumin/Globulin Ratio 0.5 (1.1-2.2); Alkaline Phosphatase 632 Units/L (38-126); Aspartate Amino Transferase 150 Units/L (5-34); BUN/Creatinine Ratio 16 (6-26); Bilirubin,Direct 3.8 mg/dL (0.0-0.5); Bilirubin,Indirect 1.4 mg/dL (0.0-1.2); Bilirubin,Total 5.2 mg/dL (0.2-1.2); Blood Urea Nitrogen 10 mg/dL (8-26); Carbon Dioxide 24 mEq/L (19-29); Chloride 94 mEq/L (98-109); Globulin 3.5 g/dL (2.4-3.5); Glucose 113 mg/dL (70-99); Magnesium 1.1 mg/dL (1.6-2.6); Osmolality,Calculated 268 (280-300); Potassium 4.1 mEq/L (3.5-4.5); Sodium 129 mEq/L (136-145); Total Protein 5.3 g/dL (6.0-8.3); eGFR For African Americans > 60 (> 60); eGFR For Non-African Americans > 60 (> 60)
[2017-05-01 05:04] LABS: Albumin 1.8 g/dL (3.5-5.0)
[2017-05-01] MEDS: *HR* Enoxaparin 60 MG/0.6 ML SYRINGE SQ SCH (05:31)
[2017-05-01] MEDS ORDERED: *HR* OxyCODONE ER (12 HR) 20 MG TABLET PO SCH (06:00)
[2017-05-01] MEDS ORDERED: *HR* Enoxaparin 30 MG/0.3 ML SYRINGE SQ SCH (06:00)
[2017-05-01 07:06] VITALS: BP 116/78
--- NOTE | 2017-05-01 12:38 | Discharge Summary ---
Date of Encounter: 05/01/17 Time of Encounter: 12:34 - Discharge Diagnosis (1) Deep vein thrombosis of lower extremity Priority: Primary Status: Chronic Qualifiers: Affected thrombotic vein of extremity: unspecified vein of extremity Laterality: unspecified laterality Qualified Code(s): I82.409 - Acute embolism and thrombosis of unspecified deep veins of unspecified lower extremity (2) Pancreatic adenocarcinoma Priority: Secondary Status: Suspected - Discharge Medications Home Medications: Ranitidine HCl [Heartburn Relief] 150 mg PO QPM 03/16/17 [History] ALPRAZolam [Xanax 0.5 MG Tablet] 0.5 mg PO BID PRN #6 tablet 04/22/17 [Rx] DiphenhydraMINE [Benadryl] 25 mg PO Q6HR PRN capsule 04/22/17 [Rx] Methyl Salicylate/Menthol [Bengay] 1 appl TP BID PRN tube 04/22/17 [Rx] OxyCODONE ER (12 HR) [OxyCONTIN] 20 mg PO Q12HR #5 tab.er.12h 04/22/17 [Rx] HYDROmorphone [Dilaudid] 4 mg PO Q4H PRN 04/30/17 [History] Pantoprazole Sodium 40 mg PO QAM 04/30/17 [History] Rivaroxaban [Xarelto] 20 mg PO QAM 04/30/17 [History] Allergies/Adverse Reactions: 3 Allergy/AdvReac Type Severity Reaction Status Date / Time Iodinated Contrast- Oral and Allergy Swelling Verified 04/30/17 16:17 IV Dye of Lip/Tongue/Throat morphine Allergy Nausea Verified 04/30/17 16:17 Date of admission: 04/30/17 18:46 Primary care physician: PCP NONE Discharging clinician: King Graves Anticipated date of discharge: 05/01/17 - Patient Status Disposition: Left Against Medical Advice Condition: Fair - Discharge Instructions Follow Up With: NONE,PCP [Primary Care Provider] - Hospital course: Mr. Cohen is a 51 year old male admitted for new left lower extremity DVT. Patient has metastatic pancreatic cancer and been known to have thromboembolic problem and he was on Xarelto. He was sent from [facility] and oncology was consulted to see if he needs to change anticoagulants versus IVC filter. Apparently he failed anticoagulation treatment. Patient denied any chest pain shortness of breath or limitation dizziness or any other symptoms. This morning patient decided to leave AMA. I went and discussed the case with him and advised him to stay considering the serious nature of his illness however he was adamant to leave. He was informed about possible risk complication and treatment options as well as heightened risk of mortality and morbidity if her his condition is not addressed. Patient verbalized back and showed good understanding but is still does not want to stay. Advised to return if he changes his mind. Nursing staff notified. - Time Spent with Patient Total time spent providing and/or coordinating discharge services: Less than 30 minutes - Constitutional Vitals: Temp Pulse Resp BP Pulse Ox 98.0 F 123 18 116/78 92 05/01/17 07:05 05/01/17 07:05 05/01/17 07:05 05/01/17 07:05 05/01/17 07:05 General appearance: Present: A&O X 3, no acute distress, answers questions appropriately - Head Head exam: Present: atraumatic, normocephalic - Eye Eye exam: Present: PERRL, conjuntiva pink, sclera anicteric Pupils: Present: PERRL - Neck Neck exam general surgery: Present: supple, trachea midline. Absent: lymphadenopathy - Respiratory Respiratory exam: Present: CTAB. Absent: accessory muscle use, rales, rhonchi, wheezes - Cardiovascular Cardiovascular exam: Present: RRR, +S1, +S2. Absent: diastolic murmur, gallop, rubs, systolic murmur - GI/Abdominal GI/Abdominal exam: Present: normal bowel sounds, soft, no peritoneal signs. Absent: distended, tenderness - Extremities Exam Extremities exam: Present: pedal edema, warm, radial pulses palpable and symmetrical. Absent: calf tenderness, cyanotic - Neurological Exam Neurological exam: Present: CN II-XII intact, oriented X3, no focal deficits. Absent: pronater drift, facial droop, speech deficit - Skin Skin exam: Present: dry, intact
== END 2017-05-01 09:01 | disposition left against medical advice (07) ==
LOC: EMEROO 16:04 → 2ANU 16:04
PROVIDERS: ADMIT Internal Medicine; ATTEND Internal Medicine